=== PATIENT | female | born 1950 | race Caucasian/White ===

== ENCOUNTER 2022-09-27 20:51 | Inpatient (IN) ==
--- NOTE | 2022-09-27 20:59 | Emergency Department Note ---
Impression & Plan Syncope, Hypoxia, Pneumonia, Diarrhea, Acute dehydration ED Provider Note NAME: MISBAH FERRARO AGE: 72 SEX: F : 1950 ARRIVES VIA: Ambulance INFORMANT: Patient, ED PROVIDER(S): Jamie Garcia MD CHIEF COMPLAINT: Syncope MEDICAL DECISION MAKING: Patient presents status post syncope that occurred while at a [facility]. The patient did have blood work completed and IV was established and the patient was placed on supplemental nasal cannula oxygen is nursing and noted the patient was hypoxemic to 88-89% on room air. Patient's blood work shows a normal white count hemoglobin 10.8. No priors for comparison. The patient's platelet count is unremarkable. Patient creatinine 1.3 and sodium 134. The patient's initial glucose of 49 was given some juice. Repeat [id number] glucose was 95. Patient does have mild elevation in AST to 87 calcium slightly low at 8.2 and troponin is 15.7 slightly elevated. TSH e levated but free T4 is normal. Patient's chest x-ray by my read does show a possible pneumonia and the patient was ordered Rocephin and azithromycin. The patient's CT of the head is negative. Given the patient's oxygen requirement, pneumonia, and syncope I did speak with the on-call hospitalist service and the patient was admitted to the medicine service by Dr. Ace. Patient was ordered additional IV fluids as the patient's blood pressure was 90/50. Prior /Outside records reviewed: None Differential diagnosis: Vasovagal event, dehydration, infection, hypoglycemia, electrolyte abnorma lities, cardiac sources, intracerebral event, pulmonary embolism, seizure, toxicologic, neurologic, as well as other pathologies. Diagnostics, as interpreted by me: ECG: Normal sinus rhythm, rate of 76 normal intervals normal axis no ST elevations or T WI Cardiac monitoring: An order was placed for continuous cardiac monitoring. The monitor shows a rate of 77 with sinus rhythm. Patient was placed on pulse oximetry Medical decision rules: none Imaging studies: See below HPI: Patient presents due to concern for syncope. The patient reportedly has felt generally unwell for about the last 2 weeks and has been having worsening diarrhea. Patient has had no nausea or vomiting. No chest pains or shortness of breath but the patient was noted to be hypoxemic upon arrival by nursing was placed on supplemental nasal cannula oxygen. The patient is not on nasal cannula oxygen. Patient did have a fall several days ago and did have a bruise to her right buttock area. Because the patient was feeling generally unwell today. The patient did go to [facility] but there was such a wait that they left and doing so they stopped at a [employer] and that the patient went to go use the toilet and had syncopized on the toilet. Patient denies any head or neck pain no numbness tingling or focal weakness. Patient does admit to feeling somewhat generally weak but no focal symptoms. Patient denies any cough but has had multiple bowel movements over the last several weeks. No known antibiotics, sick contacts no untreated stream or well water. PAST MEDICAL HISTORY: See Below PAST SURGICAL HISTORY: See Below SOCIAL HISTORY: See Below HOME MEDICATIONS: See Below ALLERGIES: See Below VITALS: See Below PHYSICAL EXAMINATION: GENERAL: NAD, wearing a mask, non-toxic. Nasal cannula in place. EYE EXAM: Normal conjunctiva. PERRL, no anisocoria and EOM's grossly intact w/o pain. NECK: Supple, no nuchal rigidity, no adenopathy, non-tender. No signs of meningismus. FROM of the neck with good chin to chest and neck extension. No stridor. LUNGS: Clear to auscultation. Normal chest wall mechanics. HEART: NSR, no MRG. ABDOMEN: Abdomen soft, non-tender, normo-active bowel sounds, no masses, no rebound or guarding. BACK: No CVA TTP. SKIN: Area of bruising to the right buttock. UPPER EXTREMITIES: Upper extremities are grossly normal. LOWER EXTREMITIES: Grossly normal, no edema. No TTP to the right hip and good active range of motion of the right hip and knee. Neurovascular intact distally noted leg length discrepancy NEURO EXAM: A&O x3, cranial nerves II-XII grossly intact, normal speech, moves all 4 extremities. Past Med/Surg History Medical History (Updated 09/27/22 @ 23:48 by Jamie Garcia MD) Depression DM (diabetes mellitus) HTN (hypertension) Migraines Surgical History (Updated 09/27/22 @ 23:44 by Jamie Garcia MD) No pertinent past surgical history Social History Smoking Status: Former smoker Tobacco Type: Cigarettes Preferred Language: Omani Feels Safe at Home: Yes Allergies Allergies Allergy/AdvReac Type Severity Reaction Status Date / Time aspirin Allergy Mild Unknown Verified 09/27/22 23:05 oxycodone Allergy Mild Unknown Verified 09/27/22 23:05 codeine Allergy Unknown nausea/vomi Verified 09/27/22 23:05 ting morphine Allergy Unknown makes me Verified 09/27/22 23:05 itchy Home Meds Home Medications Medication Instructions Recorded Confirmed CALCIUM CARBONATE-VITAMIN D W/ 1 tab PO BID #0 tabs 08/03/14 (CALTRATE 600 PLUS) CHOLESTYRAMINE 4 g PO DAILY PRN Diarrhea ##30 08/03/14 Clonazepam 1 mg PO BID ##60 08/03/14 Cyanocobalamin (Vitamin B-12) 1,000 mcg PO DAILY #0 tabs 08/03/14 MENTHOL-ZINC OXIDE (CALMOSEPTINE) 1 applic transdermal UD ##0 08/03/14 amitriptyline 25 mg tablet 25 mg PO HS 09/27/22 09/27/22 amlodipine 5 mg tablet 5 mg PO QPM 09/27/22 09/27/22 dulaglutide 0.75 mg/0.5 mL 0.75 mg subcut WK 09/27/22 09/27/22 subcutaneous pen injector (Trulicity) furosemide 20 mg tablet 20 mg PO QAM PRN Edema 09/27/22 09/27/22 gabapentin 300 mg capsule 300 mg PO TID 09/27/22 09/27/22 insulin degludec 200 unit/mL (3 54 unit subcut QPM 09/27/22 09/27/22 mL) subcutaneous pen (Tresiba FlexTouch U-200 insulin) lisinopril 20 mg tablet 20 mg PO BID 09/27/22 09/27/22 metformin 500 mg tablet 500 mg PO BID 09/27/22 09/27/22 mirtazapine 15 mg tablet 15 mg PO HS 09/27/22 09/27/22 pantoprazole 40 mg tablet,delayed 40 mg PO QAM 09/27/22 09/27/22 release propranolol 10 mg tablet 10 mg PO TID 09/27/22 09/27/22 rivaroxaban 20 mg tablet (Xarelto) 20 mg PO QPM 09/27/22 09/27/22 sertraline 50 mg tablet 75 mg PO DAILY 09/27/22 09/27/22 simvastatin 10 mg tablet 10 mg PO QPM 09/27/22 09/27/22 tramadol 50 mg tablet 50 mg PO Q6H PRN Pain 09/27/22 09/27/22 venlafaxine 150 mg 150 mg PO QAM 09/27/22 09/27/22 capsule,extended release 24 hr venlafaxine 75 mg capsule,extended 75 mg PO QAM 09/27/22 09/27/22 release 24 hr Results & Data (ED) Vital Signs Vital Signs - 24 hr 09/27/22 21:48 09/27/22 22:21 Temperature 37.5 C Temperature Source Oral Pulse Rate 81 Pulse Rate [Finger] 81 Pulse Rhythm Regular Pulse Rhythm [Finger] Regular Pulse Strength Normal Pulse Strength [Finger] Normal Respiratory Rate 20 20 Respiratory Effort / Characteristics Non-Labored Spontaneous Non-Labored Spontaneous Respiratory Depth Normal Normal Respiratory Pattern Regular Regular Blood Pressure 107/53 L Blood Pressure [Right Arm] 94/50 L Blood Pressure Mean 71 Blood Pressure Mean [Right Arm] 64 Blood Pressure Position Lying Blood Pressure Position [Right Arm] Lying Pulse Oximetry 94 96 Oxygen Delivery Method Nasal Cannula Nasal Cannula Oxygen Flow Rate 2 1 Sepsis Recent Fever Within 48 Hours No Sepsis New/Unexplained Change in Mental Status N/A Sepsis Action Taken by Nursing No Action Required Home Medications Current Medication List: was personally reviewed by me Laboratory Data Attestation: I reviewed the patient's lab results. 09/27/22 21:31 09/27/22 21:31 Lab Results 09/27/22 09/27/22 09/27/22 Range/Units 21:31 21:31 21:31 WBC 9.41 (4.8-10.8) K/ul RBC 3.83 L (4.20-5.40) M/uL Hgb 10.8 L (12.0-16.0) g/dl Hct 34.0 L (37.0-47.0) % MCV 88.8 (80.0-100.0) fL MCH 28.2 (25.0-34.0) pg MCHC 31.8 L (32.0-36.0) g/dL RDW Std Deviation 50.0 H (36.4-46.3) fL RDW Coeff of Miriam 15.4 H (11.5-14.5) % Plt Count 239 (130-400) K/uL MPV 9.2 L (9.4-12.4) fL Immature Gran % (Auto) 1.3 % Neut % (Auto) 73.1 % Lymph % (Auto) 14.3 % Dewitt % (Auto) 10.9 % Eos % (Auto) 0.1 % Baso % (Auto) 0.3 % Neut # (Auto) 6.87 H (1.40-6.50) K/uL Lymph # (Auto) 1.35 (1.2-3.4) K/uL Dewitt # (Auto) 1.03 H (0.11-0.59) K/uL Eos # (Auto) 0.01 (0-0.50) K/uL Baso # (Auto) 0.03 (0-0.2) K/uL Immature Gran # (Auto) 0.12 (0.01-0.20) K/uL Sodium 134 L (136-145) mmol/L Potassium 3.7 (3.5-5.1) mmol/L Chloride 100 (98-107) mmol/L Carbon Dioxide 26 (21-32) mmol/L Anion Gap 8 (3-11) BUN 25 H (6-23) mg/dl Creatinine 1.34 H (0.6-1.2) mg/dl Est Cr Clr Drug Dosing 40.2 ml/min Est GFR ( Amer) 45.8 ml/min Est GFR (Non-Af Amer) 39.5 ml/min BUN/Creatinine Ratio 18.7 (10-20) Glucose 49 L* (70-99(Fasting)) mg/dl POC Glucose (70-99) mg/dl Calcium 8.2 L (8.5-10.1) mg/dl Magnesium 1.8 (1.7-2.4) mg/dl Total Bilirubin 0.9 (0.2-1.0) mg/dl AST 87 H (13-39) U/L ALT 25 (7-52) U/L Alkaline Phosphatase 72 (34-104) U/L Troponin I High Sens 15.7 H (0-14) pg/ml Total Protein 7.0 (6.0-8.3) gm/dl Albumin 3.6 (3.4-5.0) gm/dl Globulin 3.4 (2.5-4.0) gm/dl Albumin/Globulin Ratio 1.1 (0.9-2) TSH 5.249 H (0.300-4.500) uIu/ml Free T4 0.89 (0.61-1.60) ng/dl 09/27/22 Range/Units 22:41 WBC (4.8-10.8) K/ul RBC (4.20-5.40) M/uL Hgb (12.0-16.0) g/dl Hct (37.0-47.0) % MCV (80.0-100.0) fL MCH (25.0-34.0) pg MCHC (32.0-36.0) g/dL RDW Std Deviation (36.4-46.3) fL RDW Coeff of Miriam (11.5-14.5) % Plt Count (130-400) K/uL MPV (9.4-12.4) fL Immature Gran % (Auto) % Neut % (Auto) % Lymph % (Auto) % Dewitt % (Auto) % Eos % (Auto) % Baso % (Auto) % Neut # (Auto) (1.40-6.50) K/uL Lymph # (Auto) (1.2-3.4) K/uL Dewitt # (Auto) (0.11-0.59) K/uL Eos # (Auto) (0-0.50) K/uL Baso # (Auto) (0-0.2) K/uL Immature Gran # (Auto) (0.01-0.20) K/uL Sodium (136-145) mmol/L Potassium (3.5-5.1) mmol/L Chloride (98-107) mmol/L Carbon Dioxide (21-32) mmol/L Anion Gap (3-11) BUN (6-23) mg/dl Creatinine (0.6-1.2) mg/dl Est Cr Clr Drug Dosing ml/min Est GFR ( Amer) ml/min Est GFR (Non-Af Amer) ml/min BUN/Creatinine Ratio (10-20) Glucose (70-99(Fasting)) mg/dl POC Glucose 95 (70-99) mg/dl Calcium (8.5-10.1) mg/dl Magnesium (1.7-2.4) mg/dl Total Bilirubin (0.2-1.0) mg/dl AST (13-39) U/L ALT (7-52) U/L Alkaline Phosphatase (34-104) U/L Troponin I High Sens (0-14) pg/ml Total Protein (6.0-8.3) gm/dl Albumin (3.4-5.0) gm/dl Globulin (2.5-4.0) gm/dl Albumin/Globulin Ratio (0.9-2) TSH (0.300-4.500) uIu/ml Free T4 (0.61-1.60) ng/dl Administered Medications Discontinued Medications Sodium Chloride (Nss 1000ml) 1,000 mls @ 999 mls/hr IV .Q1H1M [place] Stop: 09/27/22 22:30 Last Infusion: 09/27/22 23:18 Dose: 0 mls/hr Documented By: Admin: 09/27/22 22:10 Dose: 999 mls/hr Documented By: [id number] Imaging Data Radiologist's Impression: Head CT 09/27/22 21:25 Exam(s): CT HEAD Without Contrast EXAM: CT Head Without Intravenous Contrast CLINICAL HISTORY: Reason for exam: fall/syncope on eliqiuis. TECHNIQUE: Axial computed tomography images of the head/brain without intravenous contrast. Automated exposure control was utilized for the study. A dose lowering technique was utilized adhering to the principles of ALARA. COMPARISON: No relevant prior studies available. FINDINGS: No acute intracranial hemorrhage. No midline shift or mass effect. The territorial cervantes-white matter differentiation is maintained throughout. Age-related cerebral volume loss. Periventricular and subcortical white matter hypoattenuation, consistent with chronic microangiopathy. The visualized orbits appear grossly unremarkable. The calvarium is intact. The visualized paranasal sinuses and mastoid air cells are grossly clear. IMPRESSION: No acute intracranial hemorrhage, midline shift, or mass effect. Electronically signed by: Sebastien Marino MD 09/27/22 22:27 PM Discharge Plan Visit Data Chief Complaint: Syncope Stated Complaint: SYNCOPE X1 ED Provider: Jamie Garcia Discharge Problem: Syncope, Hypoxia, Pneumonia, Diarrhea, Acute dehydration Patient Disposition: Admitted As Inpatient Forms Stand Alone Forms: [facility] [employer] Prescriptions Prescriptions: No Action MENTHOL-ZINC OXIDE (CALMOSEPTINE) 1 OIN OIN 1 applic Transdermal UD Qty: 0 CHOLESTYRAMINE 4 GM POW 4 g PO DAILY PRN (Reason: Diarrhea) Qty: 30 Clonazepam 1 MG tablet 1 mg PO BID Qty: 60 CALCIUM CARBONATE-VITAMIN D W/ (CALTRATE 600 PLUS) 1 TAB tablet 1 tab PO BID Qty: 0 Cyanocobalamin (Vitamin B-12) 1,000 MCG tablet 1,000 mcg PO DAILY Qty: 0 lisinopril 20 mg tablet 20 mg PO BID pantoprazole 40 mg tablet,delayed release (DR/EC) 40 mg PO QAM gabapentin 300 mg capsule 300 mg PO TID insulin degludec [Tresiba FlexTouch U-200] 200 unit/mL (3 mL) insulin pen 54 unit SUBCUT QPM amitriptyline 25 mg tablet 25 mg PO HS Xarelto 20 mg tablet 20 mg PO QPM amlodipine 5 mg tablet 5 mg PO QPM Trulicity 0.75 mg/0.5 mL pen injector 0.75 mg SUBCUT WK Rx Instructions: TAKE THIS MED EVERY TUESDAY MORNING propranolol 10 mg tablet 10 mg PO TID simvastatin 10 mg tablet 10 mg PO QPM metformin 500 mg tablet 500 mg PO BID furosemide 20 mg tablet 20 mg PO QAM PRN (Reason: Edema) venlafaxine 75 mg capsule,extended release 24hr 75 mg PO QAM Rx Instructions: TAKE WITH VENLAFEXINE ER 150 = 225MG EVERY MORNING venlafaxine 150 mg capsule,extended release 24hr 150 mg PO QAM Rx Instructions: TAKE WITH VENLAFEXINE ER 75 = 225MG EVERY MORNING mirtazapine 15 mg tablet 15 mg PO HS sertraline 50 mg tablet 75 mg PO DAILY Rx Instructions: ONE AND ONE-HALF TABLET DOSE tramadol 50 mg tablet 50 mg PO Q6H PRN (Reason: Pain) Referrals Referrals: Spike Felix [Primary Care Provider] -
[2022-09-27] MEDS ORDERED: SODIUM CHLORIDE 0.9% 1000ML 1,000 ML IV SCH (21:30)
[2022-09-27 22:07] LABS: Basophils # (auto) 0.03 K/uL (0-0.2); Basophils % (auto) 0.3 %; Eosinophils # (auto) 0.01 K/uL (0-0.50); Eosinophils % (auto) 0.1 %; Hemoglobin 10.8 g/dl (12.0-16.0); Immature Granulocytes # (auto) 0.12 K/uL (0.01-0.20); Immature Granulocytes % (auto) 1.3 %; Lymphocytes # (auto) 1.35 K/uL (1.2-3.4); Lymphocytes % (auto) 14.3 %; Mean Corpuscular Hemoglobin 28.2 pg (25.0-34.0); Mean Corpuscular Hgb Conc 31.8 g/dL (32.0-36.0); Mean Corpuscular Volume 88.8 fL (80.0-100.0); Mean Platelet Volume 9.2 fL (9.4-12.4); Monocytes # (auto) 1.03 K/uL (0.11-0.59); Monocytes % (auto) 10.9 %; Neutrophils # (auto) 6.87 K/uL (1.40-6.50); Neutrophils % (auto) 73.1 %; Platelet Count 239 K/uL (130-400); RDW Coefficient of Variation 15.4 % (11.5-14.5); Red Blood Count 3.83 M/uL (4.20-5.40); White Blood Count 9.41 K/ul (4.8-10.8)
[2022-09-27 22:18] LABS: Albumin Globulin Ratio 1.1 (0.9-2); Albumin Level 3.6 gm/dl (3.4-5.0); BUN Creatinine Ratio 18.7 (10-20); Bilirubin,Total 0.9 mg/dl (0.2-1.0); Calcium 8.2 mg/dl (8.5-10.1); Creatinine Clr Calc Pharmacy 40.2 ml/min; Est GFR (African American) 45.8 ml/min; Est GFR (Non-African American) 39.5 ml/min; Globulin 3.4 gm/dl (2.5-4.0); Magnesium 1.8 mg/dl (1.7-2.4); Potassium 3.7 mmol/L (3.5-5.1); Troponin I High Sensitivity 15.7 pg/ml (0-14)
--- NOTE | 2022-09-27 22:28 | CT Scan Report ---
Exam(s): CT HEAD Without Contrast EXAM: CT Head Without Intravenous Contrast CLINICAL HISTORY: Reason for exam: fall/syncope on eliqiuis. TECHNIQUE: Axial computed tomography images of the head/brain without intravenous contrast. Automated exposure control was utilized for the study. A dose lowering technique was utilized adhering to the principles of ALARA. COMPARISON: No relevant prior studies available. FINDINGS: No acute intracranial hemorrhage. No midline shift or mass effect. The territorial cervantes-white matter differentiation is maintained throughout. Age-related cerebral volume loss. Periventricular and subcortical white matter hypoattenuation, consistent with chronic microangiopathy. The visualized orbits appear grossly unremarkable. The calvarium is intact. The visualized paranasal sinuses and mastoid air cells are grossly clear. IMPRESSION: No acute intracranial hemorrhage, midline shift, or mass effect. Electronically signed by: Sebastien Marino MD 09/27/22 22:27 PM
[2022-09-27 22:36] LABS: Thyroid Stimulating Hormone 5.249 uIu/ml (0.300-4.500)
[2022-09-27 23:12] LABS: T4 Free Thyroxine 0.89 ng/dl (0.61-1.60)
[2022-09-27] MEDS ORDERED: AZITHROMYCIN 250 MG TAB PO ONE (23:38)
[2022-09-27] MEDS ORDERED: cefTRIAXone SODIUM 2,000 MG/70 ML BAG IV STA (23:38)
[2022-09-27] MEDS ORDERED: SODIUM CHLORIDE 0.9% 1000ML 500 ML IV ONE (23:38)
[2022-09-28 00:02] LABS: Influenza A virus by PCR Uninterpretable (Neg); Influenza B virus by PCR Uninterpretable (Neg); RSV by PCR Uninterpretable (Neg); SARS CoV2 RNA(COVID-19) Ceph Uninterpretable (Negative)
[2022-09-28 01:16] LABS: Influenza A virus by PCR Negative (Neg); Influenza B virus by PCR Negative (Neg); RSV by PCR Negative (Neg)
[2022-09-28 01:19] LABS: SARS CoV2 RNA(COVID-19) Ceph POSITIVE (Negative)
--- NOTE | 2022-09-28 05:08 | History and Physical Report ---
DATE OF ADMISSION: 09/27/2022 CHIEF COMPLAINT: Syncope. HISTORY OF PRESENT ILLNESS: This is a 72-year-old female with past medical history significant for diabetes, hypertension, hyperlipidemia, GERD and depression, Hx of PE.presents with syncopal episode. The patient says she was feeling weak for last couple of days, tired. She says she has some cough. Denies any fevers. Today, she has a total of 4 episodes of nausea, vomiting and also has diarrhea. She was at grocery store today in the evening when she was in the toilet, she moved her bowels, had diarrhea, and she passed out. She does not know how long she passed out. She does not think she hit her head. She thinks she fell slowly down. When she woke up, she called for help. Denies any biting of the tongue, . When she came to the ER, she was requiring oxygen. In the Emergency Room, her glucose was low at 49, given some juice and it increased to 95, her blood pressure was soft at 90/50. She was hypoxic at 88-89% on room air. She was placed on oxygen. Denies any chest pain, does not feel short of breath. Denies any abdominal pain. Normal bladder movements. She says she has chronic swelling in the legs with lymphedema. Denies any headache or dizziness. No blurred visions, no earache. She always has some runny nose. She has some sore throat. She lives with her . ALLERGIES: ASPIRIN, OXYCODONE, CODEINE, MORPHINE. PAST MEDICAL HISTORY: As mentioned above. PAST SURGICAL HISTORY: Cholecystectomy. MEDICATIONS: The patient is on amitriptyline 25 mg p.o. at bedtime, amlodipine 5 mg p.o. a.m., vitamin B12 1000 mcg p.o. daily, Trulicity 0.75 mg subcutaneous weekly, Lasix 20 mg p.o. a.m. p.r.n., gabapentin 300 mg p.o. t.i.d., insulin degludec 54 units subcutaneously p.m., lisinopril 20 mg p.o. b.i.d., metformin 500 mg p.o. b.i.d., mirtazapine 15 mg p.o. at bedtime, Protonix 40 mg p.o. a.m., propranolol 10 mg p.o. t.i.d., Xarelto 20 mg p.o. p.m., sertraline 75 mg p.o. daily, simvastatin 10 mg p.o. daily, tramadol 50 mg p.o. q. 6 hours p.r.n., venlafaxine 225 mg p.o. daily. FAMILY HISTORY: Noncontributory. SOCIAL HISTORY: Remote history of smoking. No alcohol. Lives with her family. REVIEW OF SYSTEMS: As per HPI. Rest of review of systems is negative. PHYSICAL EXAMINATION: GENERAL: The patient is of moderate build, not in acute distress. VITAL SIGNS: Temperature 37.5, pulse 76, respiratory rate 18, blood pressure when she came in was 94/50, currently 101/62, oxygen 96% on 1.5 liters. HEENT: Pupils equal, round and reactive to light. Oral mucosa dry. NECK: No JVD, no neck masses. CARDIOVASCULAR: S1 and S2 heard. Regular rate and rhythm. No murmur, no gallop. RESPIRATORY SYSTEM: Normal AP diameter. No accessory muscle use. No wheezing, no crackles. ABDOMEN: Soft, bowel sounds present, nontender, no distention. CENTRAL NERVOUS SYSTEM: Alert and oriented. Speech is clear. No facial droop. Obeys simple commands. Moves extremities. EXTREMITIES: Chronic lymphedema of the extremities seen. No erythema seen. LABORATORY DATA: WBC 9.4, hemoglobin 10.8, hematocrit 34, platelets 239. Sodium 134, potassium 3.7, chloride 100, bicarbonate 26, BUN 25, creatinine 1.34, serum glucose 49, calcium 8.2, magnesium 1.8, total bilirubin 0.9, AST 87, ALT 24, alkaline phosphatase 72. Troponin I high sensitivity 15.7. TSH is 4.2, free T4 0.8. IMAGING DATA: Chest x-ray, right middle and lower lobe infiltrates. CT of the head, no acute findings. ELECTROCARDIOGRAM: Normal sinus rhythm, rate of 76, no acute ST changes seen. ASSESSMENT AND PLAN: This is a 72-year-old female who presents with syncope and also hypoxia. 1. Syncope. Happened when she was having diarrhea, could be vasovagal. We will check orthostatics. Monitor in the tele floor. We will get an echocardiogram. Troponin is mildly elevated. . We will follow serial enzymes, consult Cardiology. Monitor in the tele floor. 2. Weakness, hypoxia, possibly pneumonia on chest x-ray. Empirically started on Rocephin and doxycycline. We will follow the response. 3. Anemia with hemoglobin 10.8. We do not have old labs. We will check stool for Hemoccult and iron studies, vitamin B12, folate levels. 4. Possible acute kidney injury: Creatinine 1.34. No baseline labs. We will follow with repeat labs. Avoid nephrotoxic agents. 5. Hypoglycemia, history of diabetes. The patient had hypoglycemia when she came in. We will hold her long acting insulin, Trulicity and metformin. We will place her on insulin sliding scale. Follow the blood sugars. 6. Hypertension. Currently, the patient's blood pressure is soft. We will hold amlodipine, lisinopril. We will continue with propranolol with holding parameters. Monitor the blood pressure and restart home medications when blood pressure is elevated. 7. Depression. The patient is on Remeron, Zoloft, and venlafaxine and amitriptyline which will be continued,May consult psychiatry to adjust meds. 8. History of pulmonary embolism, on Xarelto, which we will continue. The patient says she takes regularly. 9. History of hyperlipidemia: On statin. 10. Deep venous thrombosis prophylaxis: On Xarelto. Addendum: covid came back positive. Started on Decadron and remdesivir. Covid precautions. Says vaccinated and boosted once. DISPOSITION: Closely monitor in the tele floor. Level 1 full code. Expect to discharge home and follow with her family doctor. Job ID: [id number] [facility]
[2022-09-28] MEDS ORDERED: GLUCOSE 10 TAB/TUBE PO PRN (06:28)
[2022-09-28] MEDS ORDERED: SODIUM CHLORIDE 0.9% 1000ML 1,000 ML IV SCH (06:28)
[2022-09-28] MEDS ORDERED: CARBOHYDRATES FOR HYPOGLYCEMIA PO PRN (06:28)
[2022-09-28] MEDS ORDERED: DEXTROSE 50% 50 ML SYRINGE IV PRN (06:28)
[2022-09-28] MEDS ORDERED: GLUCOSE 40% GEL 15 GM TUBE PO PRN (06:28)
[2022-09-28] MEDS ORDERED: GLUCAGON FOR INJ 1 MG VIAL SQ PRN (06:28)
[2022-09-28] MEDS ORDERED: NITROGLYCERIN SL 0.4 MG/TAB TAB SL PRN (06:28)
[2022-09-28] MEDS ORDERED: REMDESIVIR 200 MG in SODIUM CHLORIDE 0.9% 210 ML IV ONE (07:00)
[2022-09-28 07:18] LABS: Basophils # (auto) 0.03 K/uL (0-0.2); Basophils % (auto) 0.7 %; Eosinophils # (auto) 0.04 K/uL (0-0.50); Eosinophils % (auto) 0.9 %; Hematocrit (blood only) 32.5 % (37.0-47.0); Hemoglobin 10.3 g/dl (12.0-16.0); Immature Granulocytes # (auto) 0.06 K/uL (0.01-0.20); Immature Granulocytes % (auto) 1.3 %; Lymphocytes # (auto) 1.39 K/uL (1.2-3.4); Lymphocytes % (auto) 30.5 %; Mean Corpuscular Hemoglobin 27.7 pg (25.0-34.0); Mean Corpuscular Hgb Conc 31.7 g/dL (32.0-36.0); Mean Corpuscular Volume 87.4 fL (80.0-100.0); Mean Platelet Volume 9.3 fL (9.4-12.4); Monocytes # (auto) 0.79 K/uL (0.11-0.59); Monocytes % (auto) 17.3 %; Neutrophils # (auto) 2.25 K/uL (1.40-6.50); Neutrophils % (auto) 49.3 %; Platelet Count 214 K/uL (130-400); RDW Coefficient of Variation 15.4 % (11.5-14.5); RDW Standard Deviation 49.2 fL (36.4-46.3); Red Blood Count 3.72 M/uL (4.20-5.40); White Blood Count 4.56 K/ul (4.8-10.8)
--- NOTE | 2022-09-28 07:20 | XRay Report ---
XR chest 1V portable HISTORY: 72 years-old Female hypoxia acute hypoxia COMPARISON: Chest CT 08/03/2014 TECHNIQUE: AP view of the chest FINDINGS: Cardiomediastinal and hilar silhouettes are within normal limits. Patchy airspace opacities are noted within the lung bases and left midlung. No pneumothorax, large pleural effusion or overt pulmonary e falguni. Degenerative changes of the shoulders and spine. IMPRESSION: Patchy airspace opacities within the left greater than right lungs suggestive of multifoc al pneumonia. Short-term follow-up chest radiograph recommended after treatment course to document re solution. ACT 112: Negative or not required by law. The above report was generated using voice recognition software. It may contain grammatical, syntax o r spelling errors. Electronically signed by: Peña Quintana M.D. 09/28/2022 7:18 AM
[2022-09-28 07:39] LABS: BUN Creatinine Ratio 18.1 (10-20); Creatinine Clr Calc Pharmacy 46.4 ml/min; Est GFR (African American) 54.5 ml/min; Magnesium 1.9 mg/dl (1.7-2.4); Potassium 3.8 mmol/L (3.5-5.1)
[2022-09-28 07:39] LABS: Appearance Urine Clear (Clear); Bacteria Urine Automated Negative (Negative); Bilirubin Urine Negative (Negative); Blood Urine Trace (Negative); Color Urine Yellow; Epithelial Cell Urine Auto 20-30 /lpf (0-5); Glucose Urine UA Negative (Negative); Ketones Urine Negative (Negative); Leukocyte Esterase Urine Negative (Negative); Nitrite Urine Negative (Negative); Protein Urine Trace (Negative); RBC Urine Automated 0-4 /hpf (0-4); Specific Gravity Urine 1.007 (1.000-1.030); Urobilinogen Urine Negative (Negative); pH Urine 5.5 (4.5-7.5)
[2022-09-28 07:44] LABS: Troponin I High Sensitivity 13.4 pg/ml (0-14)
[2022-09-28 07:52] LABS: Estimated Average Glucose 111 mg/dl; Hemoglobin A1C 5.5 % (4.5-5.6)
[2022-09-28] MEDS: dexAMETHasone 6 MG in SYRINGE 0 ML IV SCH (08:22)
[2022-09-28] MEDS: CYANOCOBALAMIN (B-12) 500 MCG TABLET PO SCH (08:23)
[2022-09-28] MEDS: VENLAFAXINE HCL XR 75 MG CAPXR PO SCH (08:24)
[2022-09-28] MEDS: GABAPENTIN 300 MG CAP PO SCH ×3 (08:24→20:56)
[2022-09-28] MEDS: VENLAFAXINE HCL XR 150 MG CAPXR PO SCH (08:24)
[2022-09-28] MEDS: PANTOprazole 40 MG TAB PO SCH (08:24)
[2022-09-28] MEDS: INSULIN ASPART PER UNIT SC SCH ×4 (08:56→20:58)
[2022-09-28] MEDS ORDERED: D5W AND NSS 1,000 ML IV SCH (09:00)
--- NOTE | 2022-09-28 09:13 | Cardiology Consultation ---
Date of Consultation September 28, 2022 Assessment & Plan (1) Elevated troponin: (2) Pneumonia due to COVID-19 virus: (3) Syncope: (4) Hypoxia: (5) Diarrhea: (6) Acute dehydration: Plan 72 year old female admitted to [facility] on 09/28/2022 following a syncope episode suggesting symptomatic hypotension/vasovagal event occurring in the setting of volume depletion associated with active SARS-CoV-2 multifocal pneumonia, chronic anemia, chronic diarrhea. The initial high sensitivity Troponin I was minimally elevated at 15.7 pg/mL leading to cardiology consultation. The second Troponin was normal at 13.4 pg/ml. EKG on presentation revealed normal sinus rhythm at 76 bpm without acute changes. Patient asymptomatic in regards to active angina symptoms. Minimally elevated troponin occurring in the absence of an acute coronary syndrome. Treatment of the active SARS-CoV-2 multifocal pneumonia as per the Hospitalist team Resting echocardiography has been requested by the admitted provider and will be reviewed by Dr. Torrez when available. Agree with holding furosemide, amlodipine, and lisinopril Consider an alternative to amlodipine going forward given the concurrent use of gabapentin and chronic lymphedema, hopefully leading to less as needed diuretic need. Continue telemetry monitoring Continue anticoagulation Supervising Physician Co-Signing Physician Notes I have reviewed the advance practitioner documentation and agree. I evaluated the patient but as per COVID protocol I did not enter the room to reduce the likelihood of exposure. The patient has an active SARS-CoV-2 infections and is receiving appropriate supportive care. We will review the resting echo when it is available. History of Present Illness Reason for Consultation: Elevated troponin, Syncope Requesting Physician: Db Attending Physician: Caesar History of Present Illness Negrita Butler is a 72 year old female with chronic diarrhea, stating "I keep Imodium in business.". Over the last few days the patient has had a cough productive of phlegm, runny nose, sore throat, increased fatigue, tiredness, and weakness. Yesterday she was shopping at [employer]. After urinating, while washing her hands, she felt the need to have a bowel movement and went back to the toilet where she experienced a unwitnessed syncope episode. Duration unknown. No tongue biting. The patient was brought to the [facility] ER. She was hypoxic (88% on room air), hypoglycemic (49 mg/dL), and mildly hypotensive with a BP of 94/50. SARS-CoV-2 Positive. Chest x-ray revealed patchy airspace opac ities within the left greater than right lungs suggestive of multifocal pneumonia. Initial high sensitivity Troponin I was minimally elevated at 15.7 pg/mL leading to cardiology consultation. The second Troponin was normal at 13.4 pg/ml. EKG on admission revealed normal sinus rhythm at 76 bpm. QTc 427 ms. Continuous telemetry monitoring since admission has revealed sinus with occasional PVC's. Patient denies prior cardiac history. She specifically denies history of GA, CAD, CHF, arrhythmia, heart murmur, rheumatic fever, or scarlet fever. Patient denies chest pain, pleuritic chest pain, tachypalpitations, or unusual shortness of breath outside the acute URI. + cough. No orthopnea. No PND. Chronic left greater than right lower extremity peripheral edema with history of left lower extremity DVT and lymphedema noted. Chronic lightheadedness and dizziness with positional change. Denies fevers. Denies rigors though has been chilled. Denies soaking night sweats. No hemoptysis, melena, hematochezia, or hematuria. 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 GERD Iron deficiency anemia Diverticulum of the pharynx Bipolar disorder Depression Vitamin B deficiency Fibrocystic disease of breast Osteoarthritis Migraines Cholecystectomy Ventral hernia repair Left breast biopsy ORIF right ankle Total hip arthroplasty right Tubal ligation Family History: Positive for CAD in both parents. Mother in her 80's. Father in his 60's. Two siblings remaining. Social History: . Lives with . Reformed smoker. No smokeless tobacco. No alcohol. No illegal drug use. Retired, previously working at [employer]. Complete Review of Systems is as stated above, negative, or noncontributory. Allergies Allergy/AdvReac Type Severity Reaction Status Date / Time aspirin Allergy Mild Unknown Verified 09/27/22 23:05 oxycodone Allergy Mild Unknown Verified 09/27/22 23:05 codeine Allergy Unknown nausea/vomi Verified 09/27/22 23:05 ting morphine Allergy Unknown makes me Verified 09/27/22 23:05 itchy Home Medications Medication Instructions Recorded Confirmed Type amitriptyline 25 mg tablet 25 mg PO HS 09/27/22 09/27/22 History amlodipine 5 mg tablet 5 mg PO QPM 09/27/22 09/27/22 History cyanocobalamin (vitamin B-12) 1,000 mcg PO DAILY 09/27/22 09/27/22 History 1,000 mcg tablet dulaglutide 0.75 mg/0.5 mL 0.75 mg subcut WK 09/27/22 09/27/22 History subcutaneous pen injector (Trulicity) furosemide 20 mg tablet 20 mg PO QAM PRN Edema 09/27/22 09/27/22 History gabapentin 300 mg capsule 300 mg PO TID 09/27/22 09/27/22 History insulin degludec 200 unit/mL (3 54 unit subcut QPM 09/27/22 09/27/22 History mL) subcutaneous pen (Tresiba FlexTouch U-200 insulin) lisinopril 20 mg tablet 20 mg PO BID 09/27/22 09/27/22 History metformin 500 mg tablet 500 mg PO BID 09/27/22 09/27/22 History mirtazapine 15 mg tablet 15 mg PO HS 09/27/22 09/27/22 History pantoprazole 40 mg tablet,delayed 40 mg PO QAM 09/27/22 09/27/22 History release propranolol 10 mg tablet 10 mg PO TID 09/27/22 09/27/22 History rivaroxaban 20 mg tablet (Xarelto) 20 mg PO QPM 09/27/22 09/27/22 History sertraline 50 mg tablet 75 mg PO DAILY 09/27/22 09/27/22 History simvastatin 10 mg tablet 10 mg PO QPM 09/27/22 09/27/22 History tramadol 50 mg tablet 50 mg PO Q6H PRN Pain 09/27/22 09/27/22 History venlafaxine 150 mg 150 mg PO QAM 09/27/22 09/27/22 History capsule,extended release 24 hr venlafaxine 75 mg capsule,extended 75 mg PO QAM 09/27/22 09/27/22 History release 24 hr Patient History Medical History Depression DM (diabetes mellitus) HTN (hypertension) Migraines Surgical History No pertinent past surgical history Social History Smoking Status: Never smoker Tobacco Type: Cigarettes Hx Alcohol Use: No Hx Substance Use: No Preferred Language: Gambian Communication Ability: Effective Special Education Resource Room Teacher Required: No Beliefs That Will Affect Care: None Current Living Situation: Family Other Information That Helps Us Care for You: No Feels Safe at Home: Yes Safety Concerns: Feels Safe At This Time Assistive Devices: Denture - Upper and Glasses Physical Exam Physical Exam: General: A&Ox3. NAD. Laying supine. HENT: Normocephalic. Atraumatic. Eyes: PER. Conjunctiva pink, sclera pale. Neck: Neck veins are flat. No HJR. No carotid bruits. Heart: RRR, 70 bpm. No murmur. No rub. Lungs: Diminished. Decreased. Scattered rhonchi. No wheeze. Abdomen: +BS. Soft. Nontender. No masses or organomegaly. Extremities: Lymphedematous changes, left greater than right. No edema. No clubbing. No cyanosis. Limited neurological examination is without focal deficits. Pulses: radial=2/4, posterior tibial=1/4. Results & Data ([facility]) Vital Signs (Past 12 Hours) Vital Signs Temp Pulse Pulse Pulse Resp BP BP 09/28/22 07:43 09/28/22 07:43 36.7 C 68 18 98/56 L 09/28/22 06:44 09/28/22 06:04 74 21 09/28/22 06:04 134/76 09/28/22 05:30 70 17 09/28/22 05:30 137/64 09/28/22 05:00 65 13 09/28/22 05:00 123/64 09/28/22 04:31 61 15 09/28/22 04:31 127/52 L 09/28/22 04:02 65 15 09/28/22 04:02 92/60 L 09/28/22 04:00 63 19 09/28/22 04:00 100/56 L 09/28/22 03:06 100/58 L 09/28/22 03:06 69 15 09/28/22 02:12 09/28/22 02:09 09/28/22 01:00 79 17 09/28/22 01:00 118/69 09/28/22 00:30 73 14 09/28/22 00:30 101/62 09/28/22 00:00 76 18 09/28/22 00:00 117/62 09/27/22 23:30 71 17 09/27/22 23:30 111/62 09/27/22 23:26 95/52 L 09/27/22 23:26 74 15 09/28/22 00:30 76 18 09/27/22 22:21 81 20 09/27/22 21:48 37.5 C 81 20 107/53 L BP Pulse Ox O2 Del Method O2 Flow Rate 09/28/22 07:43 Nasal Cannula 2 09/28/22 07:43 95 Nasal Cannula 2 09/28/22 06:44 Nasal Cannula 2 09/28/22 06:04 93 Nasal Cannula 2 09/28/22 06:04 09/28/22 05:30 98 09/28/22 05:30 09/28/22 05:00 97 Nasal Cannula 2 09/28/22 05:00 09/28/22 04:31 97 Nasal Cannula 2 09/28/22 04:31 09/28/22 04:02 97 Nasal Cannula 2 09/28/22 04:02 09/28/22 04:00 97 Nasal Cannula 2 09/28/22 04:00 09/28/22 03:06 09/28/22 03:06 98 Nasal Cannula 2 09/28/22 02:12 97 Nasal Cannula 3 09/28/22 02:09 88 L Nasal Cannula 2 09/28/22 01:00 95 Nasal Cannula 2 09/28/22 01:00 09/28/22 00:30 96 Nasal Cannula 2 09/28/22 00:30 09/28/22 00:00 96 Nasal Cannula 2 09/28/22 00:00 09/27/22 23:30 94 Nasal Cannula 2 09/27/22 23:30 09/27/22 23:26 09/27/22 23:26 09/28/22 00:30 101/62 96 Nasal Cannula 1.5 09/27/22 22:21 94/50 L 96 Nasal Cannula 1 09/27/22 21:48 94 Nasal Cannula 2 Laboratory Results Cardiac Enzymes 09/27/22 09/28/22 Range/Units 21:31 06:59 AST 87 H (13-39) U/L Troponin I High Sens 15.7 H 13.4 (0-14) pg/ml CBC 09/27/22 09/28/22 Range/Units 21:31 06:59 WBC 9.41 4.56 L (4.8-10.8) K/ul RBC 3.83 L 3.72 L (4.20-5.40) M/uL Hgb 10.8 L 10.3 L (12.0-16.0) g/dl Hct 34.0 L 32.5 L (37.0-47.0) % Plt Count 239 214 (130-400) K/uL Neut # (Auto) 6.87 H 2.25 (1.40-6.50) K/uL Lymph # (Auto) 1.35 1.39 (1.2-3.4) K/uL [place] # (Auto) 1.03 H 0.79 H (0.11-0.59) K/uL Eos # (Auto) 0.01 0.04 (0-0.50) K/uL Baso # (Auto) 0.03 0.03 (0-0.2) K/uL Comprehensive Metabolic Panel 09/27/22 09/28/22 Range/Units 21:31 06:59 Sodium 134 L 141 (136-145) mmol/L Potassium 3.7 3.8 (3.5-5.1) mmol/L Chloride 100 109 H (98-107) mmol/L Carbon Dioxide 26 28 (21-32) mmol/L BUN 25 H 21 (6-23) mg/dl Creatinine 1.34 H 1.16 (0.6-1.2) mg/dl Glucose 49 L* 65 L (70-99(Fasting)) mg/dl Calcium 8.2 L 8.0 L (8.5-10.1) mg/dl AST 87 H (13-39) U/L ALT 25 (7-52) U/L Alkaline Phosphatase 72 (34-104) U/L Total Protein 7.0 (6.0-8.3) gm/dl Albumin 3.6 (3.4-5.0) gm/dl Intake and Output 09/27/22 09/28/22 09/28/22 22:59 06:59 14:59 Intake Total 1570 / 1570 Balance 1570 / 1570 Intake: IV 1570 / 1570 Sodium Chloride 0.9% 1000ML 500 1500 / 1500 ml @ 999 mls/hr IV .Q31M ONE Rx#:[id number] cefTRIAXone SODIUM 2,000 mg In 70 / 70 70 ml @ 140 mls/hr IV NOW STA Rx#:[id number] Other: Weight 85.7 kg 85 kg Weight Measurement Method Built in [facility] Built in [facility] Patient Weight 09/29/22 06:59 Weight 85 kg Diagnostic Findings Head CT in the ER showed no acute intracranial hemorrhage, midline shift, or mass effect. (3) Syncope Syncope type: unspecified Qualified Code(s): R55 - Syncope and collapse (5) Diarrhea Diarrhea type: unspecified type Qualified Code(s): R19.7 - Diarrhea, unspecified
[2022-09-28] MEDS: DOXYCYCLINE HYCLATE 100 MG in DEXTROSE 5% 100 ML IV SCH ×3 (09:50→20:58)
[2022-09-28] MEDS: guaiFENesin 600 MG TABCR PO SCH ×2 (10:27→20:59)
[2022-09-28] MEDS: PROPRANOLOL HCL 10 MG TAB PO SCH ×3 (10:27→20:55)
[2022-09-28] MEDS: SERTRALINE HCL 50 MG TABLET PO SCH (10:27)
--- NOTE | 2022-09-28 12:49 | Electrocardiogram Report ---
Test Reason : Blood Pressure : / mmHG Vent. Rate : 076 BPM Atrial Rate : 076 BPM P-R Int : 146 ms QRS Dur : 084 ms QT Int : 380 ms P-R-T Axes : 024 -09 034 degrees QTc Int : 427 ms Poor data quality, interpretation may be adversely affected Normal sinus rhythm Normal ECG When compared with ECG of 03-AUG-2014 15:12, No significant change was found Confirmed by Chris Ellington ([id number]) on 09/28/2022 12:48:41 PM Referred By: REFERRED SELF Confirmed By:Chris Ellington
--- NOTE | 2022-09-28 13:06 | Hospitalist Progress Note ---
Date of Service September 28, 2022 Assessment & Plan (1) Pneumonia due to COVID-19 virus: (2) Hypoxia: Plan: ASSESSMENT AND PLAN: This is a 72-year-old female who presents with syncope and also hypoxia. COVID-19 infection, bilateral pneumonia with acute respiratory failure Continue Decadron plus remdesivir Monitor LFTs daily Continue incentive spirometry, flutter valve, Mucinex On Eliquis already Also on ceftriaxone plus doxycycline for possible superimposed bacterial pneumonia 1. Syncope. Happened when she was having diarrhea, could be vasovagal. We will check orthostatics. Monitor in the tele floor. We will get an echocardiogram. Troponin is mildly elevated. . We will follow serial enzymes, consult Cardiology. Monitor in the tele floor. Likely secondary to multiple factors: Hypoglycemia, hypotension, hypoxia Management per below Echocardiogram ordered Cardiology service consulted-hold Lasix, amlodipine, lisinopril 2. Weakness, hypoxia secondary to above 3. Anemia with hemoglobin 10.8. We do not have old labs. We will check stool for Hemoccult and iron studies, vitamin B12, folate levels. Follow-up anemia panel 4. Possible acute kidney injury: Creatinine 1.34. No baseline labs. We will follow with repeat labs. Avoid nephrotoxic agents. Creatinine improved to 1.16 5. Hypoglycemia, history of diabetes. The patient had hypoglycemia when she came in. We will hold her long acting insulin, Trulicity and metformin. We isacc l place her on insulin sliding scale. Follow the blood sugars. Started on D5 NSS for hypoglycemia this morning Monitor BSG's closely Continue insulin sliding scale Check A1c 6. Hypertension. Blood pressures on the lower side Hold Lasix, amlodipine, lisinopril 7. Depression. The patient is on Remeron, Zoloft, and venlafaxine and amitriptyline which will be continued, 8. History of pulmonary embolism, on Xarelto, which we will continue. The patient says she takes regularly. 9. History of hyperlipidemia: On statin. 10. Deep venous thrombosis prophylaxis: On Xarelto. DISPOSITION: Pending We will order PT OT evaluation Admission and Anticipated Discharge Date Admission Date: September 28, 2022 Subjective Follow-up for COVID-19 infection, pneumonia, hypoxia, etc. Seen resting in bed, sitting up, on 2 L of oxygen via nasal cannula States that she feels somewhat better compared to yesterday Breathing is okay, still has occasional cough, productive of clear sputum Denies chest pain, leg pain Nausea, vomiting, and acute diarrhea resolved No other symptom Review of Systems Review of Systems: all noted and negative except for above Physical Exam Physical Exam: General- oriented x 3, not in distress, speaks in sentences with no effort or accessory muscle use Eyes- anicteric Neck- no JVD Lungs-diminished breath sounds bilaterally but otherwise clear No wheezing noted Heart- normal rate, regular rhythm; no murmurs Abdomen- normal bowel sounds, nondistended, soft, nontender Extremities- no pretibial edema, no calf tenderness Neuro- alert, oriented x 3; no gross focal neurologic deficits Skin- warm & dry Results & Data Results & Data ([facility]) Vital Signs (Past 12 Hours) Vital Signs Temp Pulse Pulse Resp BP BP Pulse Ox 09/28/22 09:56 72 104/65 09/28/22 07:43 09/28/22 07:43 36.7 C 68 18 98/56 L 95 09/28/22 06:44 09/28/22 06:04 74 21 93 09/28/22 06:04 134/76 09/28/22 05:30 70 17 98 09/28/22 05:30 137/64 09/28/22 05:00 65 13 97 09/28/22 05:00 123/64 09/28/22 04:31 61 15 97 09/28/22 04:31 127/52 L 09/28/22 04:02 65 15 97 09/28/22 04:02 92/60 L 09/28/22 04:00 63 19 97 09/28/22 04:00 100/56 L 09/28/22 03:06 100/58 L 09/28/22 03:06 69 15 98 09/28/22 02:12 97 09/28/22 02:09 88 L O2 Del Method O2 Flow Rate 09/28/22 09:56 09/28/22 07:43 Nasal Cannula 2 09/28/22 07:43 Nasal Cannula 2 09/28/22 06:44 Nasal Cannula 2 09/28/22 06:04 Nasal Cannula 2 09/28/22 06:04 09/28/22 05:30 09/28/22 05:30 09/28/22 05:00 Nasal Cannula 2 09/28/22 05:00 09/28/22 04:31 Nasal Cannula 2 09/28/22 04:31 09/28/22 04:02 Nasal Cannula 2 09/28/22 04:02 09/28/22 04:00 Nasal Cannula 2 09/28/22 04:00 09/28/22 03:06 09/28/22 03:06 Nasal Cannula 2 09/28/22 02:12 Nasal Cannula 3 09/28/22 02:09 Nasal Cannula 2 all noted and reviewed including below
[2022-09-28] MEDS: AMITRIPTYLINE HCL 25 MG TAB PO SCH (20:55)
[2022-09-28] MEDS: cefTRIAXone SODIUM 2,000 MG in DEXTROSE 5% 50 ML IV SCH (20:55)
[2022-09-28] MEDS: MIRTAZAPINE TAB 15 MG TAB PO SCH (20:56)
[2022-09-28] MEDS: SIMVASTATIN 10 MG TAB PO SCH (20:57)
[2022-09-28] MEDS: RIVAROXABAN 20 MG TAB PO SCH (20:57)
[2022-09-29 08:05] LABS: Albumin Level 2.9 gm/dl (3.4-5.0); Bilirubin Direct 0.1 mg/dl (0-0.2); Bilirubin,Total 0.3 mg/dl (0.2-1.0); Creatinine Clr Calc Pharmacy 64.4 ml/min; Est GFR (African American) 81.7 ml/min; Est GFR (Non-African American) 70.4 ml/min; Total Protein 5.8 gm/dl (6.0-8.3)
[2022-09-29] MEDS: CYANOCOBALAMIN (B-12) 500 MCG TABLET PO SCH (08:40)
[2022-09-29] MEDS: GABAPENTIN 300 MG CAP PO SCH ×3 (08:41→20:49)
[2022-09-29] MEDS: DOXYCYCLINE HYCLATE 100 MG in DEXTROSE 5% 100 ML IV SCH ×2 (08:41→22:07)
[2022-09-29] MEDS: PANTOprazole 40 MG TAB PO SCH (08:42)
[2022-09-29] MEDS: guaiFENesin 600 MG TABCR PO SCH ×2 (08:42→20:49)
[2022-09-29] MEDS: VENLAFAXINE HCL XR 150 MG CAPXR PO SCH (08:43)
[2022-09-29] MEDS: SERTRALINE HCL 50 MG TABLET PO SCH (08:43)
[2022-09-29] MEDS: VENLAFAXINE HCL XR 75 MG CAPXR PO SCH (08:44)
[2022-09-29] MEDS: INSULIN ASPART PER UNIT SC SCH ×4 (09:24→21:16)
[2022-09-29] MEDS: PROPRANOLOL HCL 10 MG TAB PO SCH ×3 (09:37→20:49)
[2022-09-29] MEDS: dexAMETHasone 6 MG in SYRINGE 0 ML IV SCH (09:37)
--- NOTE | 2022-09-29 11:58 | Cardiology Progress Note ---
Date of Service September 29, 2022 Assessment & Plan (1) Elevated troponin: (2) Pneumonia due to COVID-19 virus: (3) Syncope: (4) Hypoxia: (5) Diarrhea: (6) Acute dehydration: Plan 72 year old female admitted to [facility] on 09/28/2022 following a syncope episode suggesting symptomatic hypotension/vasovagal event occurring in the setting of volume depletion associated with active SARS-CoV-2 multifocal pneumonia, chronic anemia, chronic diarrhea. The initial high sensitivity Troponin I was minimally elevated at 15.7 pg/mL leading to cardiology consultation. The second Troponin was normal at 13.4 pg/ml. EKG on presentation revealed normal sinus rhythm at 76 bpm without acute changes. Patient asymptomatic in regards to active angina symptoms. Minimally elevated troponin occurring in the absence of an acute coronary syndrome. Resting echocardiography with preserved systolic function without wall motion abnormality. Treatment of the active SARS-CoV-2 multifocal pneumonia as per the Hospitalist team. Blood pressure remains soft. Continue to hold furosemide, amlodipine, and lisinopril. Consider avoiding amlodipine going forward given the concurrent use of gabapentin and chronic lymphedema, hopefully leading to less as needed diuretic need. Contact with any questions or concerns. Admission and Anticipated Discharge Date Admission Date: September 28, 2022 Supervising Physician Co-Signing Physician Notes I have reviewed the advance practitioner documentation and agree. Her COVID protocol, I did not enter the room where the patient was isolated. I agree with the plan as outlined. Subjective Discussed with hospitalist. No cardiac concerns. No reported chest pain September 28, 2022 TTE Interpretation Summary ([facility], Dr. Torrez): Normal size LV. Normal systolic function. EF 55-60%. Normal RV function. Mildly dilated left atrium. Normal RA. mild aortic regurgitation. Telemetry: Sinus in the 60's Results & Data ([facility]) Vital Signs (Past 12 Hours) Vital Signs Temp Pulse Pulse Resp BP Pulse Ox O2 Del Method 09/29/22 11:48 36.8 C 58 L 18 95/61 L 94 Room Air 09/29/22 08:44 67 09/29/22 08:04 36.7 C 59 L 19 108/69 96 Nasal Cannula 09/29/22 02:55 36.7 C 54 L 18 108/68 98 Nasal Cannula O2 Flow Rate 09/29/22 11:48 09/29/22 08:44 09/29/22 08:04 2.0 09/29/22 02:55 2 Diagnostic Findings Cardiac Enzymes 09/28/22 09/29/22 Range/Units 12:17 06:32 AST 58 H (13-39) U/L Troponin I High Sens 14.5 H (0-14) pg/ml Comprehensive Metabolic Panel 09/29/22 Range/Units 06:32 Creatinine 0.83 D (0.6-1.2) mg/dl Direct Bilirubin 0.1 (0-0.2) mg/dl AST 58 H (13-39) U/L ALT 19 (7-52) U/L Alkaline Phosphatase 51 (34-104) U/L Total Protein 5.8 L (6.0-8.3) gm/dl Albumin 2.9 L (3.4-5.0) gm/dl Intake and Output 09/28/22 09/29/22 09/29/22 22:59 06:59 14:59 Intake Total 894 / 2235.667 235 / 2235.667 Balance 894 / 2235.667 235 / 2235.667 Intake: IV 594 / 1210.667 110 / 1210.667 D5w and Nss 1,000 ml @ 80 mls/ 524 / 524 hr IV .[id number] [facility] Rx#:[id number] Doxycycline Hyclate 100 mg In 110 / 220 Dextrose 5% 100 ml @ 50 mls/hr IV Q12H [facility] Rx#:[id number] cefTRIAXone SODIUM 2,000 mg In 70 / 70 Dextrose 5% 50 ml @ 100 mls/hr IV Q24H [facility] Rx#:[id number] Oral 300 / 1025 125 / 1025 Other: Weight 84.5 kg Weight Measurement Method Built in [facility] (3) Syncope Syncope type: unspecified Qualified Code(s): R55 - Syncope and collapse (5) Diarrhea Diarrhea type: unspecified type Qualified Code(s): R19.7 - Diarrhea, unspecified
[2022-09-29] MEDS: REMDESIVIR 100 MG in SODIUM CHLORIDE 0.9% 230 ML IV SCH (12:31)
--- NOTE | 2022-09-29 17:16 | Hospitalist Progress Note ---
Date of Service September 29, 2022 Assessment & Plan (1) Pneumonia due to COVID-19 virus: (2) Hypoxia: Plan: ASSESSMENT AND PLAN: This is a 72-year-old female who presents with syncope and also hypoxia. COVID-19 infection, bilateral pneumonia with acute respiratory failure Continue Decadron plus remdesivir Monitor LFTs daily Continue incentive spirometry, flutter valve, Mucinex On Eliquis already Also on ceftriaxone plus doxycycline for possible superimposed bacterial pneumonia 09/29 Weaned of oxygen LFTs okay Continue present regimen 1. Syncope. Happened when she was having diarrhea, could be vasovagal. We will check orthostatics. Monitor in the tele floor. We will get an echocardiogram. Troponin is mildly elevated. . We will follow serial enzymes, consult Cardiology. Monitor in the tele floor. Likely secondary to multiple factors: Hypoglycemia, hypotension, hypoxia Management per below Echocardiogram ordered Cardiology service consulted-hold Lasix, amlodipine, lisinopril Echo 55 to 60% Mild aortic regurgitation Denies dizziness or lightheadedness 2. Weakness, hypoxia secondary to above Improving 3. Anemia with hemoglobin 10.8. We do not have old labs. We will check stool for Hemoccult and iron studies, vitamin B12, folate levels. 09/29 Hemoglobin 10.3 Iron 17 We will start iron replacement 4. Possible acute kidney injury: Creatinine 1.34. No baseline labs. We will follow with repeat labs. Avoid nephrotoxic agents. Creatinine improved to 0.8 5. Hypoglycemia, history of diabetes. The patient had hypoglycemia when she came in. We will hold her long acting insulin, Trulicity and metformin. We will place her on insulin sliding scale. Follow the blood sugars. Improving Monitor BSG's closely Continue insulin sliding scale Check A1c 5.5 6. Hypertension. Blood pressures on the lower side Hold Lasix, amlodipine, lisinopril 7. Depression. The patient is on Remeron, Zoloft, and venlafaxine and amitriptyline which will be continued, 8. History of pulmonary embolism, on Xarelto, which we will continue. The patient says she takes regularly. 9. History of hyperlipidemia: On statin. 10. Deep venous thrombosis prophylaxis: On Xarelto. DISPOSITION: Pending We will order PT OT evaluation Admission and Anticipated Discharge Date Admission Date: September 28, 2022 Subjective Follow-up for COVID-19 infection, acute hypoxic respiratory failure, etc. Seen sitting up in bed, on room air In good spirits States she continues to improve Has occasional cough No chest pain No other symptoms Review of Systems Review of Systems: all noted and negative except for above Physical Exam Physical Exam: General- oriented x 3, not in distress, speaks in sentences with no effort or accessory muscle use Eyes- anicteric Neck- no JVD Lungs-mildly diminished at the bases, no wheezing Heart- normal rate, regular rhythm; no murmurs Abdomen- normal bowel sounds, nondistended, soft, nontender Extremities- no pretibial edema, no calf tenderness Neuro- alert, oriented x 3; no gross focal neurologic deficits Skin- warm & dry Results & Data Results & Data ([facility]) Vital Signs (Past 12 Hours) Vital Signs Temp Pulse Pulse Pulse Resp BP Pulse Ox 09/29/22 16:29 36.8 C 58 L 18 112/74 93 09/29/22 07:05 57 L 09/29/22 14:25 09/29/22 11:48 36.8 C 58 L 18 95/61 L 94 09/29/22 08:44 67 09/29/22 08:04 36.7 C 59 L 19 108/69 96 O2 Del Method O2 Flow Rate 09/29/22 16:29 Room Air 09/29/22 07:05 09/29/22 14:25 Nasal Cannula 2 09/29/22 11:48 Room Air 09/29/22 08:44 09/29/22 08:04 Nasal Cannula 2.0
[2022-09-29] MEDS: SIMVASTATIN 10 MG TAB PO SCH (20:49)
[2022-09-29] MEDS: RIVAROXABAN 20 MG TAB PO SCH (20:49)
[2022-09-29] MEDS: MIRTAZAPINE TAB 15 MG TAB PO SCH (20:49)
[2022-09-29] MEDS: AMITRIPTYLINE HCL 25 MG TAB PO SCH (20:49)
[2022-09-29] MEDS: cefTRIAXone SODIUM 2,000 MG in DEXTROSE 5% 50 ML IV SCH (20:50)
--- NOTE | 2022-09-30 06:20 | Electrocardiogram Report ---
Test Reason : Blood Pressure : / mmHG Vent. Rate : 056 BPM Atrial Rate : 056 BPM P-R Int : 158 ms QRS Dur : 078 ms QT Int : 416 ms P-R-T Axes : 030 019 041 degrees QTc Int : 401 ms Sinus bradycardia with sinus arrhythmia Otherwise normal ECG When compared with ECG of 27-SEP-2022 21:14, No significant change was found Confirmed by Donald Amaro ([id number]) on 09/30/2022 6:19:41 AM Referred By: REFERRED SELF Confirmed By:Donald Amaro
[2022-09-30 07:46] LABS: Creatinine Clr Calc Pharmacy 65.9 ml/min; Est GFR (African American) 84.1 ml/min; Est GFR (Non-African American) 72.6 ml/min
[2022-09-30] MEDS: PANTOprazole 40 MG TAB PO SCH (07:49)
[2022-09-30] MEDS: GABAPENTIN 300 MG CAP PO SCH ×3 (07:49→20:19)
[2022-09-30] MEDS: SERTRALINE HCL 50 MG TABLET PO SCH (07:49)
[2022-09-30] MEDS: CYANOCOBALAMIN (B-12) 500 MCG TABLET PO SCH (07:49)
[2022-09-30] MEDS: VENLAFAXINE HCL XR 150 MG CAPXR PO SCH (07:49)
[2022-09-30] MEDS: VENLAFAXINE HCL XR 75 MG CAPXR PO SCH (07:49)
[2022-09-30] MEDS: guaiFENesin 600 MG TABCR PO SCH ×2 (07:49→20:16)
[2022-09-30] MEDS: dexAMETHasone 6 MG in SYRINGE 0 ML IV SCH (07:51)
[2022-09-30] MEDS: INSULIN ASPART PER UNIT SC SCH ×4 (08:06→21:21)
[2022-09-30] MEDS: DOXYCYCLINE HYCLATE 100 MG in DEXTROSE 5% 100 ML IV SCH (08:06)
[2022-09-30] MEDS: PROPRANOLOL HCL 10 MG TAB PO SCH ×3 (08:07→20:18)
[2022-09-30] MEDS: REMDESIVIR 100 MG in SODIUM CHLORIDE 0.9% 230 ML IV SCH (12:14)
[2022-09-30] MEDS: ADVANCED PROBIOTIC 1250 MG CAPSULE PO SCH (12:14)
--- NOTE | 2022-09-30 12:26 | Electrocardiogram Report ---
Test Reason : Blood Pressure : / mmHG Vent. Rate : 055 BPM Atrial Rate : 055 BPM P-R Int : 174 ms QRS Dur : 088 ms QT Int : 438 ms P-R-T Axes : 048 015 045 degrees QTc Int : 419 ms Sinus bradycardia Otherwise normal ECG When compared with ECG of 29-SEP-2022 12:51, No significant change was found Confirmed by Chris Ellington ([id number]) on 09/30/2022 12:26:02 PM Referred By: REFERRED SELF Confirmed By:Chris Ellington
--- NOTE | 2022-09-30 17:33 | Hospitalist Progress Note ---
Date of Service September 30, 2022 Assessment & Plan (1) Pneumonia due to COVID-19 virus: (2) Hypoxia: Plan: ASSESSMENT AND PLAN: This is a 72-year-old female who presents with syncope and also hypoxia. COVID-19 infection, bilateral pneumonia with acute respiratory failure Continue Decadron plus remdesivir Monitor LFTs daily Continue incentive spirometry, flutter valve, Mucinex On Eliquis already Also on ceftriaxone plus doxycycline for possible superimposed bacterial pneumonia 09/29 Weaned of oxygen LFTs okay Continue present regimen 09/30 continues to improve lab work good continue present regimen 1. Syncope. Happened when she was having diarrhea, could be vasovagal. We will check orthostatics. Monitor in the tele floor. We will get an echocardiogram. Troponin is mildly elevated. . We will follow serial enzymes, consult Cardiology. Monitor in the tele floor. Likely secondary to multiple factors: Hypoglycemia, hypotension, hypoxia Management per below Echocardiogram ordered Cardiology service consulted-hold Lasix, amlodipine, lisinopril Echo 55 to 60% Mild aortic regurgitation Denies dizziness or lightheadedness 2. Weakness, hypoxia secondary to above Improving 3. Anemia with hemoglobin 10.8. We do not have old labs. We will check stool for Hemoccult and iron studies, vitamin B12, folate levels. 09/29 Hemoglobin 10.3 Iron 17 We will start iron replacement 4. Possible acute kidney injury: Creatinine 1.34. No baseline labs. We will follow with repeat labs. Avoid nephrotoxic agents. Creatinine improved to 0.8 5. Hypoglycemia, history of diabetes. The patient had hypoglycemia when she came in. We will hold her long acting insulin, Trulicity and metformin. We will place her on insulin sliding scale. Follow the blood sugars. Improving Monitor BSG's closely Continue insulin sliding scale Check A1c 5.5 6. Hypertension. Blood pressures on the lower side Hold Lasix, amlodipine, lisinopril 7. Depression. The patient is on Remeron, Zoloft, and venlafaxine and amitriptyline which will be continued, 8. History of pulmonary embolism, on Xarelto, which we will continue. The patient says she takes regularly. 9. History of hyperlipidemia: On statin. 10. Deep venous thrombosis prophylaxis: On Xarelto. DISPOSITION: Pending We will order PT OT evaluation Admission and Anticipated Discharge Date Admission Date: September 28, 2022 Subjective ff up for covid 19 infection, etc seen resting in bed, comfortable in good spirits states she feels fine overall breathing continues to improve less cough no diarrhea appetite improving no other symptoms Review of Systems Review of Systems: all noted and negative except for above Physical Exam Physical Exam: General- oriented x 3, not in distress, speaks in sentences with no effort or accessory muscle use Eyes- anicteric Neck- no JVD Lungs- clear BS BL Heart- normal rate, regular rhythm; no murmurs Abdomen- normal bowel sounds, nondistended, soft, nontender Extremities- no pretibial edema, no calf tenderness Neuro- alert, oriented x 3; no gross focal neurologic deficits Skin- warm & dry Results & Data Results & Data ([facility]) Vital Signs (Past 12 Hours) Vital Signs Temp Pulse Pulse Pulse Resp BP Pulse Ox 09/30/22 16:43 36.9 C 58 L 18 125/77 96 09/30/22 12:05 36.5 C 56 L 18 118/74 95 09/30/22 08:00 54 L 09/30/22 08:00 09/30/22 07:30 36.7 C 53 L 20 130/74 97 O2 Del Method 09/30/22 16:43 Room Air 09/30/22 12:05 Room Air 09/30/22 08:00 09/30/22 08:00 Room Air 09/30/22 07:30 Room Air all noted and reviewed including below
[2022-09-30] MEDS: SIMVASTATIN 10 MG TAB PO SCH (20:16)
[2022-09-30] MEDS: RIVAROXABAN 20 MG TAB PO SCH (20:17)
[2022-09-30] MEDS: MIRTAZAPINE TAB 15 MG TAB PO SCH (20:18)
[2022-09-30] MEDS: AMITRIPTYLINE HCL 25 MG TAB PO SCH (20:19)
[2022-09-30] MEDS: DOXYCYCLINE HYCLATE 100 MG CAP PO SCH (20:19)
[2022-09-30] MEDS: cefTRIAXone SODIUM 2,000 MG in DEXTROSE 5% 50 ML IV SCH (21:22)
[2022-10-01 07:27] LABS: Creatinine Clr Calc Pharmacy 64.5 ml/min; Est GFR (African American) 79.3 ml/min; Est GFR (Non-African American) 68.5 ml/min
[2022-10-01] MEDS: INSULIN ASPART PER UNIT SC SCH ×4 (08:08→21:19)
[2022-10-01] MEDS: CYANOCOBALAMIN (B-12) 500 MCG TABLET PO SCH (08:53)
[2022-10-01] MEDS: DOXYCYCLINE HYCLATE 100 MG CAP PO SCH ×2 (08:53→20:32)
[2022-10-01] MEDS: dexAMETHasone 6 MG in SYRINGE 0 ML IV SCH (08:53)
[2022-10-01] MEDS: GABAPENTIN 300 MG CAP PO SCH ×3 (08:54→20:32)
[2022-10-01] MEDS: guaiFENesin 600 MG TABCR PO SCH ×2 (08:54→20:32)
[2022-10-01] MEDS: ADVANCED PROBIOTIC 1250 MG CAPSULE PO SCH (08:55)
[2022-10-01] MEDS: PANTOprazole 40 MG TAB PO SCH (08:55)
[2022-10-01] MEDS: PROPRANOLOL HCL 10 MG TAB PO SCH ×3 (08:55→20:34)
[2022-10-01] MEDS: SERTRALINE HCL 50 MG TABLET PO SCH (08:56)
[2022-10-01] MEDS: VENLAFAXINE HCL XR 75 MG CAPXR PO SCH (08:56)
[2022-10-01] MEDS: VENLAFAXINE HCL XR 150 MG CAPXR PO SCH (08:57)
--- NOTE | 2022-10-01 10:51 | Hospitalist Progress Note ---
Date of Service October 01, 2022 Assessment & Plan (1) Pneumonia due to COVID-19 virus: (2) Hypoxia: Plan: ASSESSMENT AND PLAN: This is a 72-year-old female who presents with syncope and also hypoxia. COVID-19 infection, bilateral pneumonia with acute respiratory failure Continue Decadron plus remdesivir Monitor LFTs daily Continue incentive spirometry, flutter valve, Mucinex On Eliquis already Also on ceftriaxone plus doxycycline for possible superimposed bacterial pneumonia 09/29 Weaned of oxygen LFTs okay Continue present regimen 09/30 continues to improve lab work good continue present regimen 10/01 stable will complete remdesivir tomorrow Syncope. Happened when she was having diarrhea, could be vasovagal. We will check orthostatics. Monitor in the tele floor. We will get an echocardiogram. Troponin is mildly elevated. . We will follow serial enzymes, consult Cardiology. Monitor in the tele floor. Likely secondary to multiple factors: Hypoglycemia, hypotension, hypoxia Management per below Echocardiogram ordered Cardiology service consulted-hold Lasix, amlodipine, lisinopril Echo 55 to 60% Mild aortic regurgitation Denies dizziness or lightheadedness Weakness, hypoxia secondary to above Improving PT/OT Anemia with hemoglobin 10.8. We do not have old labs. We will check stool for Hemoccult and iron studies, vitamin B12, folate levels. 09/29 Hemoglobin 10.3 Iron 17 We will start iron replacement 4. Possible acute kidney injury: Creatinine 1.34. No baseline labs. We will follow with repeat labs. Avoid nephrotoxic agents. Creatinine improved to 0.8 5. Hypoglycemia, history of diabetes. The patient had hypoglycemia when she came in. We will hold her long acting insulin, Trulicity and metformin. We will place her on insulin sliding scale. Follow the blood sugars. Improving Monitor BSG's closely Continue insulin sliding scale Check A1c 5.5 6. Hypertension. Blood pressures improving resume Lasix and Amlodipine hold lisinopril 7. Depression. The patient is on Remeron, Zoloft, and venlafaxine and amitriptyline which will be continued, 8. History of pulmonary embolism, on Xarelto, which we will continue. The patient says she takes regularly. 9. History of hyperlipidemia: On statin. 10. Deep venous thrombosis prophylaxis: On Xarelto. DISPOSITION: Pending We will order PT OT evaluation Admission and Anticipated Discharge Date Admission Date: September 28, 2022 Subjective ff up for covid 19 infection, etc seen resting in bed, comfortable states she feels fine overall improving no dyspnea, cough improving reports L sided lower rib pain no leg pain no other symptoms Review of Systems Review of Systems: all noted and negative except for above Physical Exam Physical Exam: General- oriented x 3, not in distress, speaks in sentences with no effort or accessory muscle use Eyes- anicteric Neck- no JVD Lungs- clear breath sounds bilaterally, no rales/wheezes (+) tenderness on the left lower lateral rib area no hematoma Heart- normal rate, regular rhythm; no murmurs Abdomen- normal bowel sounds, nondistended, soft, no tenderness Extremities- no pretibial edema, no calf tenderness Neuro- alert, oriented x 3; no gross focal neurologic deficits Skin- warm & dry Results & Data Results & Data ([facility]) Vital Signs (Past 12 Hours) Vital Signs Temp Pulse Pulse Pulse Resp BP Pulse Ox 10/01/22 07:00 55 L 10/01/22 08:00 36.8 C 59 L 18 125/70 95 10/01/22 03:10 36.4 C L 59 L 20 129/78 94 09/30/22 23:12 36.8 C 56 L 20 132/74 95 O2 Del Method 10/01/22 07:00 10/01/22 08:00 Room Air 10/01/22 03:10 Room Air 09/30/22 23:12 Room Air all noted and reviewed including below
[2022-10-01] MEDS: REMDESIVIR 100 MG in SODIUM CHLORIDE 0.9% 230 ML IV SCH (12:00)
[2022-10-01] MEDS: LIDOCAINE 5% 1 PATCH TD SCH (12:00)
--- NOTE | 2022-10-01 12:05 | XRay Report ---
PA CHEST WITH LEFT-SIDED RIB SERIES CLINICAL HISTORY: Left-sided chest wall pain. FINDINGS: AP chest radiograph with 4 additional views from a left-sided rib series is compared to drew dy dated 09/27/2022 and correlated with chest CT dated 08/03/2014. The heart is top normal for projectio n. The mediastinal contour is within normal limits. Chronic interstitial thickening is seen throughou t both lungs with several foci of parenchymal scarring. Airspace opacities in the left mid lung have partially cleared. No large pleural effusion is identified. No pneumothorax is seen. The skeletal str uctures are osteopenic. There is no radiographic evidence of acute/displaced left-sided rib fracture on the rib series. Chronic/healed left-sided rib fractures are noted. The remainder of the bony thora x is grossly intact. Surgical clips are seen in the upper abdomen. IMPRESSION: 1. Airspace opacities in the left lung have partially cleared as compared to 09/27/2022. Continued radi ographic follow-up to resolution is recommended. 2. There is no radiographic evidence of acute/displaced left-sided rib fracture on the rib series as clinically queried. ACT 112: Negative or not required by law. Electronically signed by: Paul Morfin M.D. 10/01/2022 12:03 PM
[2022-10-01] MEDS: FERROUS SULFATE 325 MG TAB PO SCH (17:05)
[2022-10-01] MEDS: SIMVASTATIN 10 MG TAB PO SCH (20:32)
[2022-10-01] MEDS: MIRTAZAPINE TAB 15 MG TAB PO SCH (20:32)
[2022-10-01] MEDS: RIVAROXABAN 20 MG TAB PO SCH (20:32)
[2022-10-01] MEDS: AMITRIPTYLINE HCL 25 MG TAB PO SCH (20:33)
[2022-10-01] MEDS: amLODIPine BESYLATE 5 MG TAB PO SCH (20:33)
[2022-10-01] MEDS: cefTRIAXone SODIUM 2,000 MG in DEXTROSE 5% 50 ML IV SCH (21:20)
[2022-10-01] MEDS ORDERED: ACETAMINOPHEN 325 MG TAB PO STA (23:52)
[2022-10-02] MEDS: dexAMETHasone 6 MG in SYRINGE 0 ML IV SCH (00:17)
[2022-10-02] MEDS: hydrOXYzine HCl 10 MG TAB PO PRN ×2 (00:22→06:37)
[2022-10-02] MEDS: ACETAMINOPHEN 325 MG TAB PO PRN ×2 (00:22→06:36)
[2022-10-02] MEDS ORDERED: HYDROmorphone INJ 0.5 MG/0.5 ML SYR IV PRN (00:30)
--- NOTE | 2022-10-02 00:30 | Communication Note ---
Date of Service: October 02, 2022 Patient with transient epistaxis and sneezing. [facility] now Hold Eliquis for now.
[2022-10-02 01:06] LABS: Basophils # (auto) 0.02 K/uL (0-0.2); Basophils % (auto) 0.3 %; Eosinophils # (auto) 0.08 K/uL (0-0.50); Eosinophils % (auto) 1.1 %; Hematocrit (blood only) 35.9 % (37.0-47.0); Hemoglobin 11.4 g/dl (12.0-16.0); Immature Granulocytes # (auto) 0.07 K/uL (0.01-0.20); Lymphocytes # (auto) 2.05 K/uL (1.2-3.4); Lymphocytes % (auto) 28.9 %; Mean Corpuscular Hemoglobin 27.7 pg (25.0-34.0); Mean Corpuscular Hgb Conc 31.8 g/dL (32.0-36.0); Mean Corpuscular Volume 87.3 fL (80.0-100.0); Mean Platelet Volume 9.8 fL (9.4-12.4); Monocytes % (auto) 8.5 %; Neutrophils # (auto) 4.27 K/uL (1.40-6.50); Neutrophils % (auto) 60.2 %; Platelet Count 282 K/uL (130-400); RDW Coefficient of Variation 14.7 % (11.5-14.5); RDW Standard Deviation 47.2 fL (36.4-46.3); Red Blood Count 4.11 M/uL (4.20-5.40); White Blood Count 7.09 K/ul (4.8-10.8)
[2022-10-02 06:48] LABS: Hematocrit (blood only) 35.8 % (37.0-47.0); Hemoglobin 11.5 g/dl (12.0-16.0)
[2022-10-02 07:04] LABS: Creatinine Clr Calc Pharmacy 60.1 ml/min; Est GFR (Non-African American) 63.9 ml/min
[2022-10-02] MEDS: INSULIN ASPART PER UNIT SC SCH ×4 (07:58→22:00)
[2022-10-02] MEDS: CYANOCOBALAMIN (B-12) 500 MCG TABLET PO SCH (08:10)
[2022-10-02] MEDS: VENLAFAXINE HCL XR 150 MG CAPXR PO SCH (08:10)
[2022-10-02] MEDS: SERTRALINE HCL 50 MG TABLET PO SCH (08:10)
[2022-10-02] MEDS: FERROUS SULFATE 325 MG TAB PO SCH ×2 (08:10→17:03)
[2022-10-02] MEDS: PANTOprazole 40 MG TAB PO SCH (08:10)
[2022-10-02] MEDS: ADVANCED PROBIOTIC 1250 MG CAPSULE PO SCH (08:11)
[2022-10-02] MEDS: VENLAFAXINE HCL XR 75 MG CAPXR PO SCH (08:11)
[2022-10-02] MEDS: traMADol HCL 50 MG TABLET PO PRN (08:11)
[2022-10-02] MEDS: DOXYCYCLINE HYCLATE 100 MG CAP PO SCH ×2 (08:12→20:31)
[2022-10-02] MEDS: LIDOCAINE 5% 1 PATCH TD SCH (08:12)
[2022-10-02] MEDS: PROPRANOLOL HCL 10 MG TAB PO SCH ×3 (08:13→20:34)
[2022-10-02] MEDS: GABAPENTIN 300 MG CAP PO SCH ×3 (09:29→20:31)
[2022-10-02] MEDS: guaiFENesin 600 MG TABCR PO SCH ×2 (09:29→20:31)
[2022-10-02] MEDS: HYDROCODONE/ACETAMOPHEN 5/325MG TAB PO PRN ×3 (09:41→20:30)
[2022-10-02] MEDS: REMDESIVIR 100 MG in SODIUM CHLORIDE 0.9% 230 ML IV SCH (13:04)
[2022-10-02] MEDS ORDERED: ACETAMINOPHEN 500 MG TAB PO SCH (15:00)
--- NOTE | 2022-10-02 15:02 | Hospitalist Progress Note ---
Date of Service October 02, 2022 Assessment & Plan (1) Pneumonia due to COVID-19 virus: (2) Hypoxia: Plan: ASSESSMENT AND PLAN: This is a 72-year-old female who presents with syncope and also hypoxia. COVID-19 infection, bilateral pneumonia with acute respiratory failure Continue Decadron plus remdesivir Monitor LFTs daily Continue incentive spirometry, flutter valve, Mucinex On Eliquis already Also on ceftriaxone plus doxycycline for possible superimposed bacterial pneumonia 09/29 Weaned of oxygen LFTs okay Continue present regimen 09/30 continues to improve lab work good continue present regimen 10/01 stable will complete remdesivir tomorrow 10/02 completed Remdesivir on room air 2 step tomorrow Syncope. Happened when she was having diarrhea, could be vasovagal. We will check orthostatics. Monitor in the tele floor. We will get an echocardiogram. Troponin is mildly elevated. . We will follow serial enzymes, consult Cardiology. Monitor in the tele floor. Likely secondary to multiple factors: Hypoglycemia, hypotension, hypoxia Management per below Echocardiogram ordered Cardiology service consulted-hold Lasix, amlodipine, lisinopril Echo 55 to 60% Mild aortic regurgitation Denies dizziness or lightheadedness Weakness, hypoxia secondary to above Improving PT/OT Anemia with hemoglobin 10.8. We do not have old labs. We will check stool for Hemoccult and iron studies, vitamin B12, folate levels. Hemoglobin 10.3 Iron 17 We will start iron replacement Epistaxis resolved resume Eliquis Vaseline to bilateral nostril BID 4. Possible acute kidney injury: Creatinine 1.34. No baseline labs. We will follow with repeat labs. Avoid nephrotoxic agents. Creatinine improved to 0.8 5. Hypoglycemia, history of diabetes. The patient had hypoglycemia when she came in. We will hold her long acting insulin, Trulicity and metformin. We will place her on insulin sliding scale. Follow the blood sugars. Improving Monitor BSG's closely Continue insulin sliding scale Check A1c 5.5 6. Hypertension. Blood pressures improving resume Lasix and Amlodipine hold lisinopril 7. Depression. The patient is on Remeron, Zoloft, and venlafaxine and amitriptyline which will be continued, 8. History of pulmonary embolism, on Xarelto, which we will continue. The patient says she takes regularly. 9. History of hyperlipidemia: On statin. 10. Deep venous thrombosis prophylaxis: On Xarelto. DISPOSITION: anticipate d/c home tomorrow Admission and Anticipated Discharge Date Admission Date: September 28, 2022 Subjective ff up for covid 19, hypoxia, etc seen resting in chair states she is having L rib pain- worse with movement breathing affected by rib pain no recurrence of epistaxis no other symptoms Review of Systems Review of Systems: all noted and negative except for above Physical Exam Physical Exam: General- oriented x 3, not in distress, speaks in sentences with no effort or accessory muscle use Nose- no epistaxis noted Eyes- anicteric Neck- no JVD Lungs- somewhat diminished at the bases, but clear breath sounds bilaterally, no rales/wheezes Heart- normal rate, regular rhythm; no murmurs Abdomen- normal bowel sounds, nondistended, soft, nontender Extremities- no pretibial edema, no calf tenderness Neuro- alert, oriented x 3; no gross focal neurologic deficits Skin- warm & dry Results & Data Results & Data ([facility]) Vital Signs (Past 12 Hours) Vital Signs Temp Pulse Pulse Resp BP Pulse Ox O2 Del Method 10/02/22 12:05 36.4 C L 60 19 113/60 94 Room Air 10/02/22 08:00 Room Air 10/02/22 07:30 36.3 C L 58 L 20 165/87 H 95 Room Air 10/02/22 03:25 36.4 C L 55 L 16 122/74 96 Room Air all noted and reviewed including below
[2022-10-02] MEDS ORDERED: COUGH DROP (SUGAR FREE) LOZ 24 LOZ/1 BOX BUCCAL PRN (18:06)
[2022-10-02] MEDS: SIMVASTATIN 10 MG TAB PO SCH (20:31)
[2022-10-02] MEDS: MIRTAZAPINE TAB 15 MG TAB PO SCH (20:31)
[2022-10-02] MEDS: AMITRIPTYLINE HCL 25 MG TAB PO SCH (20:32)
[2022-10-02] MEDS: amLODIPine BESYLATE 5 MG TAB PO SCH (20:32)
[2022-10-02] MEDS: RIVAROXABAN 20 MG TAB PO SCH (22:00)
[2022-10-02] MEDS: cefTRIAXone SODIUM 2,000 MG in DEXTROSE 5% 50 ML IV SCH (22:02)
[2022-10-03] MEDS: INSULIN ASPART PER UNIT SC SCH ×4 (08:28→20:00)
[2022-10-03] MEDS: LIDOCAINE 5% 1 PATCH TD SCH (09:02)
[2022-10-03] MEDS: SERTRALINE HCL 50 MG TABLET PO SCH (09:03)
[2022-10-03] MEDS: CYANOCOBALAMIN (B-12) 500 MCG TABLET PO SCH (09:04)
[2022-10-03] MEDS: ADVANCED PROBIOTIC 1250 MG CAPSULE PO SCH (09:04)
[2022-10-03] MEDS: FERROUS SULFATE 325 MG TAB PO SCH ×2 (09:04→17:03)
[2022-10-03] MEDS: DOXYCYCLINE HYCLATE 100 MG CAP PO SCH ×2 (09:04→20:10)
[2022-10-03] MEDS: GABAPENTIN 300 MG CAP PO SCH ×3 (09:04→20:10)
[2022-10-03] MEDS: PROPRANOLOL HCL 10 MG TAB PO SCH ×3 (09:04→20:10)
[2022-10-03] MEDS: VENLAFAXINE HCL XR 150 MG CAPXR PO SCH (09:04)
[2022-10-03] MEDS: traMADol HCL 50 MG TABLET PO PRN ×2 (09:05→20:09)
[2022-10-03] MEDS: guaiFENesin 600 MG TABCR PO SCH ×2 (09:05→20:10)
[2022-10-03] MEDS: PANTOprazole 40 MG TAB PO SCH (09:05)
[2022-10-03] MEDS: VENLAFAXINE HCL XR 75 MG CAPXR PO SCH (09:05)
[2022-10-03] MEDS: dexAMETHasone 6 MG in SYRINGE 0 ML IV SCH (11:16)
--- NOTE | 2022-10-03 16:02 | Hospitalist Progress Note ---
Date of Service October 03, 2022 Assessment & Plan (1) Pneumonia due to COVID-19 virus: (2) Hypoxia: Plan: ASSESSMENT AND PLAN: This is a 72-year-old female who presents with syncope and also hypoxia. COVID-19 infection, bilateral pneumonia with acute respiratory failure Chest x-ray:Patchy airspace opacities within the left greater than right lungs suggestive of multifocal pneumonia. Short-term follow-up chest radiograph recommended after treatment course to document resolution. Required 2 L of oxygen via nasal cannula initially, gradually weaned off oxygen supplement Has completed 5-day course of remdesivir, currently on Decadron LFTs okay Also on ceftriaxone plus doxycycline for possible superimposed bacterial pneumonia Continue incentive spirometry, flutter valve, Mucinex On Eliquis already Anticipate discharge home tomorrow: DC Decadron upon discharge Cefdinir plus doxycycline x2 more days to complete 1 week course Will need two-step exercise test before discharge Syncope. Likely multifactorial: Hypoglycemia, hypotension, hypoxia, COVID-19 infection Cardiology service consulted-held Lasix PRN, amlodipine, lisinopril No further intervention Echo 55 to 60% Mild aortic regurgitation Denies dizziness or lightheadedness PT and OT evaluation Weakness, hypoxia secondary to above Improving PT/OT recommend discharge to home Anemia with hemoglobin 10.8. Hemoglobin 10.3 Iron 17 started iron replacement Epistaxis Held Eliquis x1 night resolved Vaseline to bilateral nostril BID Acute kidney injury: Creatinine 1.34. Creatinine improved to 0.8 Hypoglycemia, history of diabetes. The patient had hypoglycemia when she came in. We will hold her long acting insulin, Trulicity and metformin. A1c 5.5 BSGs elevated, on Decadron ISS adjusted Pharmacy glycemic control consulted Hypertension. Blood pressures improving resumed Amlodipine hold lisinopril Depression. The patient is on Remeron, Zoloft, and venlafaxine and amitriptyline which will be continued, History of pulmonary embolism on Xarelto History of hyperlipidemia: On statin. Deep venous thrombosis prophylaxis: On Xarelto. DISPOSITION: anticipate d/c home tomorrow will need 2 step O2 Admission and Anticipated Discharge Date Admission Date: September 28, 2022 Subjective Follow-up for COVID-19 infection with hypoxia Etc. Seen sitting up in chair, comfortable, not in distress On room air States that she feels better overall, but feels on the weak side today No shortness of breath, intermittent cough No recurrence of epistaxis overnight No other symptom Review of Systems Review of Systems: all noted and negative except for above Physical Exam Physical Exam: General- oriented x 3, not in distress, speaks in sentences with no effort or accessory muscle use Eyes- anicteric Neck- no JVD Lungs-mildly diminished but clear BS BL, no rales/wheezes Heart- normal rate, regular rhythm; no murmurs Abdomen- normal bowel sounds, nondistended, soft, nontender Extremities- no pretibial edema, no calf tenderness Neuro- alert, oriented x 3; no gross focal neurologic deficits Skin- warm & dry Results & Data Results & Data ([facility]) Vital Signs (Past 12 Hours) Vital Signs Temp Pulse Pulse Resp BP Pulse Ox O2 Del Method 10/03/22 15:24 39.7 C H 64 20 113/68 95 Room Air 10/03/22 15:06 36.6 C 59 L 18 107/64 95 Room Air 10/03/22 11:14 36.6 C 55 L 20 156/75 H 95 Room Air 10/03/22 08:00 Room Air 10/03/22 08:29 36.3 C L 59 L 16 122/65 94 Room Air 10/03/22 04:27 36.4 C L 62 18 150/75 H 94 Room Air all noted and reviewed including below
[2022-10-03] MEDS ORDERED: PHARMACY GLYCEMIC MGMT CONSULT PRN (16:05)
[2022-10-03] MEDS: RIVAROXABAN 20 MG TAB PO SCH (20:10)
[2022-10-03] MEDS: MIRTAZAPINE TAB 15 MG TAB PO SCH (20:10)
[2022-10-03] MEDS: amLODIPine BESYLATE 5 MG TAB PO SCH (20:10)
[2022-10-03] MEDS: AMITRIPTYLINE HCL 25 MG TAB PO SCH (20:10)
[2022-10-03] MEDS: SIMVASTATIN 10 MG TAB PO SCH (20:10)
[2022-10-03] MEDS ORDERED: LANTUS PER UNIT CHARGE SQ SCH (21:00)
[2022-10-03] MEDS: cefTRIAXone SODIUM 2,000 MG in DEXTROSE 5% 50 ML IV SCH (21:23)
[2022-10-04] MEDS: DOXYCYCLINE HYCLATE 100 MG CAP PO SCH (08:44)
[2022-10-04] MEDS: SERTRALINE HCL 50 MG TABLET PO SCH (08:44)
[2022-10-04] MEDS: dexAMETHasone 6 MG in SYRINGE 0 ML IV SCH (08:44)
[2022-10-04] MEDS: PROPRANOLOL HCL 10 MG TAB PO SCH (08:45)
[2022-10-04] MEDS: VENLAFAXINE HCL XR 150 MG CAPXR PO SCH (08:45)
[2022-10-04] MEDS: PANTOprazole 40 MG TAB PO SCH (08:46)
[2022-10-04] MEDS: LIDOCAINE 5% 1 PATCH TD SCH (08:46)
[2022-10-04] MEDS: ADVANCED PROBIOTIC 1250 MG CAPSULE PO SCH (08:46)
[2022-10-04] MEDS: GABAPENTIN 300 MG CAP PO SCH (08:46)
[2022-10-04] MEDS: FERROUS SULFATE 325 MG TAB PO SCH (08:47)
[2022-10-04] MEDS: CYANOCOBALAMIN (B-12) 500 MCG TABLET PO SCH (08:47)
[2022-10-04] MEDS: VENLAFAXINE HCL XR 75 MG CAPXR PO SCH (08:47)
[2022-10-04] MEDS: guaiFENesin 600 MG TABCR PO SCH (08:47)
[2022-10-04] MEDS: INSULIN ASPART PER UNIT SC SCH ×2 (09:18→11:58)
--- NOTE | 2022-10-04 17:05 | Discharge Summary ---
Date of Service October 04, 2022 Admission HPI Per Admitting Provider This is a 72-year-old female with past medical history significant for diabetes, hypertension, hyperlipidemia, GERD and depression, Hx of PE.presents with syncopal episode. The patient says she was feeling weak for last couple of days, tired. She says she has some cough. Denies any fevers. Today, she has a total of 4 episodes of nausea, vomiting and also has diarrhea. She was at grocery store today in the evening when she was in the toilet, she moved her bowels, had diarrhea, and she passed out. She does not know how long she passed out. She does not think she hit her head. She thinks she fell slowly down. When she woke up, she called for help. Denies any biting of the tongue, . When she came to the ER, she was requiring oxygen. In the Emergency Room, her glucose was low at 49, given some juice and it increased to 95, her blood pressure was soft at 90/50. She was hypoxic at 88-89% on room air. She was placed on oxygen. Denies any chest pain, does not feel short of breath. Denies any abdominal pain. Normal bladder movements. She says she has chronic swelling in the legs with lymphedema. Denies any headache or dizziness. No blurred visions, no earache. She always has some runny nose. She has some sore throat. She lives with her . Admission Exam Per Admitting Provider GENERAL: The patient is of moderate build, not in acute distress. VITAL SIGNS: Temperature 37.5, pulse 76, respiratory rate 18, blood pressure when she came in was 94/50, currently 101/62, oxygen 96% on 1.5 liters. HEENT: Pupils equal, round and reactive to light. Oral mucosa dry. NECK: No JVD, no neck masses. CARDIOVASCULAR: S1 and S2 heard. Regular rate and rhythm. No murmur, no gallop. RESPIRATORY SYSTEM: Normal AP diameter. No accessory muscle use. No wheezing, no crackles. ABDOMEN: Soft, bowel sounds present, nontender, no distention. CENTRAL NERVOUS SYSTEM: Alert and oriented. Speech is clear. No facial d [place]. Obeys simple commands. Moves extremities. EXTREMITIES: Chronic lymphedema of the extremities seen. No erythema seen Principal Diagnosis COVID-19 infection Acute hypoxic respiratory failure Bilateral multifocal pneumonia Discharge Exam Constitutional: WD/WN, vitals as above, NAD, sitting up in bed, pleasant, conversing easily Respiratory: normal respiratory effort, lungs clear to auscultation, no wheeze, rales, rhonchi. Normal insp/exp effort, no accessory muscle use Cardiovascular: RRR, no murmur, no edema Vessels: no JVD or carotid bruit Chest: normal inspection of chest Abdomen: normal bowel sounds, soft, nontender, no hepatosplenomegaly Musculoskeletal: no cyanosis or clubbing, extremities motor strength 5/5 Skin: no rashes, warm and dry normal turgor Neurologic: PERRL, EOMI, accommodation nl, no face palsy, no dysarthria CN's II- XI intact bilaterally and moves all extremities Psychiatric: A+Ox3, euthymic affect Lymphatic: no cervical or axillary lymphadenopathy : deferred Discharge Data Allergies Allergy/AdvReac Type Severity Reaction Status Date / Time aspirin Allergy Mild Unknown Verified 09/27/22 23:05 oxycodone Allergy Mild Unknown Verified 09/27/22 23:05 codeine Allergy Unknown nausea/vomi Verified 09/27/22 23:05 ting morphine Allergy Unknown makes me Verified 09/27/22 23:05 itchy Consultations 09/28/22 04:41 ED Decision to Admit Stat 09/28/22 08:00 Consult Cardiology Routine Ordered Studies 09/27/22 21:25 CT head/brain wo con Stat Hospital Course (1) Pneumonia due to COVID-19 virus: (2) Hypoxia: Patient is a 72-year-old female with past medical history of type 2 diabetes mellitus, hypertension, hyperlipidemia who presented to the hospital with syncopal episode. Patient reports having weakness for past couple of days. In the ED, patient was found to be hypoglycemic, hypoxic and hypotensive. Patient was treated with IV fluids and supplemental oxygen. She was found to have COVID infection. Chest x-ray also showed multifocal pneumonia. Patient was started on Decadron, ceftriaxone and doxycycline for possible superimposed bacterial pneumonia. Patient also completed 5-day course of remdesivir during the hospitalization. Over the course of the hospitalization, patient showed signs of improvement; her supplemental oxygen was weaned off. Patient remained hemodynamically stable. She was discharged home on 2 more days of oral antibiotic. She was instructed to follow-up with her primary care doctor. Total Time Total Time Spent Total Time Spent (In Minutes): 40 Total Time Includes: Examination of the Patient, Discharge Planning, Medication Reconciliation, Communication With Other Providers and Other Discharge Plan Discharge Items Patient Disposition: Home - Self-Care Reason For Visit: SYNCOPE Discharge Diagnosis: Covid 19 pneumonia Bacterial penumonia Activity: Resume your previous activity Non-emergency contact: Primary Care Provider Call non-emergency contact if: you have any medication questions Follow-up/Referrals: Spike Felix [Primary Care Provider] - 10/21/22 9:40 am Diet: Regular Addtl Attending Provider Instructions: The following medication changes are made: 1) Stop Amlodipine. Continue other antihypertensive. This was recommended by the [employer]. 2) Cefdinir 300mg twice daily and Doxycyline 100mg twice daily is sent to your pharmacy for 2 more days. Please follow up with your PCP. You will need Chest X-ray to ensure resolution of the pneumonia as outpatient. Pending Studies at Discharge: No Stand-Alone Forms: My [facility] [employer], Smoking Cessation Medications and DC Order Prescriptions: New doxycycline hyclate 100 mg Capsule 100 mg PO BID 2 Days Qty: 4 0RF cefdinir 300 mg capsule 300 mg PO BID 2 Days Qty: 4 0RF Continued lisinopril 20 mg tablet 20 mg PO BID pantoprazole 40 mg tablet,delayed release (DR/EC) 40 mg PO QAM gabapentin 300 mg capsule 300 mg PO TID insulin degludec [Tresiba FlexTouch U-200] 200 unit/mL (3 mL) insulin pen 54 unit SUBCUT QPM amitriptyline 25 mg tablet 25 mg PO HS Xarelto 20 mg tablet 20 mg PO QPM Trulicity 0.75 mg/0.5 mL pen injector 0.75 mg SUBCUT WK Rx Instructions: TAKE THIS MED EVERY TUESDAY MORNING propranolol 10 mg tablet 10 mg PO TID simvastatin 10 mg tablet 10 mg PO QPM metformin 500 mg tablet 500 mg PO BID furosemide 20 mg tablet 20 mg PO QAM PRN (Reason: Edema) venlafaxine 75 mg capsule,extended release 24hr 75 mg PO QAM Rx Instructions: TAKE WITH VENLAFEXINE ER 150 = 225MG EVERY MORNING venlafaxine 150 mg capsule,extended release 24hr 150 mg PO QAM Rx Instructions: TAKE WITH VENLAFEXINE ER 75 = 225MG EVERY MORNING mirtazapine 15 mg tablet 15 mg PO HS sertraline 50 mg tablet 75 mg PO DAILY Rx Instructions: ONE AND ONE-HALF TABLET DOSE tramadol 50 mg tablet 50 mg PO Q6H PRN (Reason: Pain) cyanocobalamin (vitamin B-12) 1,000 mcg Tablet 1,000 mcg PO DAILY Discontinued amlodipine 5 mg tablet 5 mg PO QPM Discharge Orders: Discharge Order (Routine); Ordered 10/04/22 Ordered By: Jose G Emery Admission Data Admit Date/Time: 09/28/22 01:11 Attending Provider: Jose G Emery Admit Provider: Luis Ace Primary Care Provider: Spike Felix Other Providers: Luis Ace ; Tiffany Cantrell ; Toro Barbosa ; Hector Campbell ; Gerson Alvarez ; Javed Grimm ; Spike Torrez ; Chele Holt ; Sallie Montanez ; Lyly Caldera ; Tiffany Patel ; Jackson Castillo Other Interventions: Discharge Summary Assessment (RN) Last Done: 10/04/22 11:28
== END 2022-10-04 12:23 | disposition home or self-care (01) | DRG 177 ==
LOC: ED 20:51 → SUATTDRO 09-28 01:11 → EDINP 09-28 01:11 → 2S 09-28 06:44